=== PATIENT | female | born 1955 | race Caucasian/White ===

== ENCOUNTER 2016-10-05 18:18 | Emergency (ER) | payer OTHER ==
[~2016-10-05] VITALS: Ht 154.9 cm; Wt 40.1 kg
[~2016-10-05 18:18] MED LIST: ACET-1256 PO
[2016-10-05 18:23] VITALS: TEMP 36.7; Ht 154.9 cm; Wt 40.1 kg
[2016-10-05] MEDS ORDERED: MULTI-VITAMIN INFUSION INJ 10 ML, THIAMINE HCL INJ 100 MG, FoLIC ACID INJ 1 MG in SODIU... IV ONE (19:00)
[2016-10-05 19:09] LABS: URINE APPEARANCE CLEAR (CLEAR); URINE BILIRUBIN NEG (NEG); URINE COLOR YELLOW; URINE NITRITE NEG (NEG); URINE SPECIFIC GRAVITY 1.012 (1.000-1.030); UROBILINOGEN NEG (NEG); ZZUR CULT IF INDIC CLEAN CATCH NO
[2016-10-05 19:11] LABS: MANUAL MICROSCOPIC REQUIRED? NO; REVIEW REQ? NO
[2016-10-05 19:13] LABS: BASO % 0.1 %; BASO ABS # 0.01 K/uL (0-0.2); COMPLETE YES; EOS % 0.6 %; HEMATOCRIT 45.4 % (37-47); LYMPH % 47.1 %; LYMPH ABS # 3.15 K/uL (1.2-3.4); MEAN CORPUSCULAR HEMOGLOBIN 33.6 pg (25-34); MEAN PLATELET VOLUME 8.4 fL (7.4-10.4); MONO % 7.3 %; NEUT % 44.9 %; PLATELET COUNT 274 K/uL (130-400); RED BLOOD COUNT 4.73 M/uL (4.2-5.4); WHITE BLOOD COUNT 6.69 K/uL (4.8-10.8)
--- NOTE | 2016-10-05 19:24 | EMERGENCY ROOM VISIT NOTE ---
History Report prepared by Ibeth: Rayna Healy Under the Supervision of: Dr. Norma Almaguer M.D. First contact with patient: 18:54 Chief Complaint: ALCOHOL OVERDOSE Stated Complaint: ETOH Nursing Triage Summary: brought to ed by ambulance, phoned them "because I wanted to get help with my drinking" History of Present Illness The patient is a 61 year old female who presents to the Emergency Room with complaints of persistent, worsening depression over the past several weeks. The patient reports that over the last few years she has lost her mother and her sister. She states that it has caused her to become depressed. The patient states that over the past month she has been drinking heavily again. She reports that she previously drank heavy in the past. The patient states that she drinks approximately 7-8 beers per day and states that she drank 8 today. She denies any liquor or wine use. The patient states that she has been depressed, but denies any suicidal or homicidal ideation. She states that her children do not speak to her and states that she has a six year old granddaughter that she has never met. The patient states that she lives at home with her boyfriend and states that she feels safe. She states that she is nervous to go on a cruise with her boyfriend, because she is afraid of heights. The patient states that she was encouraged by her boyfriend to come to the emergency department today for help because he is worried about her. Source of History: patient Onset: past several weeks Position: other (global) Quality: other (depression) Timing: worsening, other (persistent) Note: Associated Symptoms: alcohol use Review of Systems See HPI for pertinent positives & negatives. A total of 10 systems reviewed and were otherwise negative. Past Medical & Surgical Medical Problems: (1) Chronic alcohol abuse (2) Colon cancer (3) Diabetes mellitus (4) Heart disease (5) HTN (hypertension) (6) Pancreatitis, alcoholic, acute Surgical Problems: (1) S/P partial colectomy Family History Diabetes mellitus FH: HTN (hypertension) FH: cancer FH: gallbladder disease FH: heart disease FH: lung disease Kidney disease or stones Social History Smoking Status: Never Smoker Alcohol Use: heavy Drug Use: none Marital Status: in relationship Housing Status: lives with significant other Occupation Status: unemployed Current/Historical Medications Scheduled Acetaminophen (Tylenol), 1,000 MG PO DIRECTED Allergies Coded Allergies: No Known Allergies (Verified , 02/10/16) Physical Exam Vital Signs Date Time Temp Pulse Resp B/P (MAP) Pulse Ox O2 Delivery O2 Flow Rate FiO2 10/05/16 23:44 100 18 133/77 92 10/05/16 23:00 107 18 121/64 94 Room Air 10/05/16 21:25 94 10/05/16 21:00 92 16 112/62 95 Room Air 10/05/16 19:32 92 Room Air 10/05/16 18:23 36.7 78 18 146/77 98 Room Air Physical Exam Vital signs reviewed. General: Intoxicated, otherwise well-appearing female, in no significant distress. Appearing tearful and anxious HEENT: No scleral icterus, PERRLA, neck supple. Atraumatic. Cardiovascular: Regular rate and rhythm, no extra sounds. Pulmonary: Clear to auscultation bilaterally, normal work of breathing. Abdomen: Soft, nontender, nondistended, positive bowel sounds. Musculoskeletal: Atraumatic, no peripheral edema. Neurologic: Patient awake alert and oriented x 3, full strength in all 4 extremities. Cranial nerves 2 through 12 grossly intact. Skin: Warm, dry, no rash Psych: Denies suicidal or homicidal ideation Medical Decision & Procedures Laboratory Results 10/05/16 19:01 Red Blood Count 4.73, Mean Corpuscular Volume 96.0, Mean Corpuscular Hemoglobin 33.6, Mean Corpuscular Hemoglobin Concent 35.0, Mean Platelet Volume 8.4, Neutrophils (%) (Auto) 44.9, Lymphocytes (%) (Auto) 47.1, Monocytes (%) (Auto) 7.3, Eosinophils (%) (Auto) 0.6, Basophils (%) (Auto) 0.1, Neutrophils # (Auto) 3.00, Lymphocytes # (Auto) 3.15, Monocytes # (Auto) 0.49, Eosinophils # (Auto) 0.04, Basophils # (Auto) 0.01 10/05/16 19:01 Test 10/05/16 18:40 10/05/16 19:01 Urine Color YELLOW Urine Appearance CLEAR (CLEAR) Urine pH 5.0 (4.5-7.5) Urine Specific [place] 1.012 (1.000-1.030) Urine Protein NEG (NEG) Urine Glucose (UA) NEG (NEG) Urine Ketones NEG (NEG) Urine Occult Blood NEG (NEG) Urine Nitrite NEG (NEG) Urine Bilirubin NEG (NEG) Urine Urobilinogen NEG (NEG) Urine Leukocyte Esterase NEG (NEG) Urine Opiates Screen NEG (NEG) Urine Methadone, Qualitative NEG (NEG) Urine Barbiturates NEG (NEG) Urine Phencyclidine (PCP) Level NEG (NEG) Ur Amphetamine/Methamphetamine NEG (NEG) MDMA (Ecstasy) Screen NEG (NEG) Urine Benzodiazepines Screen NEG (NEG) Urine Cocaine Metabolite NEG (NEG) Urine Marijuana (THC) NEG (NEG) White Blood Count 6.69 K/uL (4.8-10.8) Red Blood Count 4.73 M/uL (4.2-5.4) Hemoglobin 15.9 g/dL (12.0-16.0) Hematocrit 45.4 % (37-47) Mean Corpuscular Volume 96.0 fL (80-100) Mean Corpuscular Hemoglobin 33.6 pg (25-34) Mean Corpuscular Hemoglobin Concent 35.0 g/dl (32-36) Platelet Count 274 K/uL (130-400) Mean Platelet Volume 8.4 fL (7.4-10.4) Neutrophils (%) (Auto) 44.9 % Lymphocytes (%) (Auto) 47.1 % Monocytes (%) (Auto) 7.3 % Eosinophils (%) (Auto) 0.6 % Basophils (%) (Auto) 0.1 % Neutrophils # (Auto) 3.00 K/uL (1.4-6.5) Lymphocytes # (Auto) 3.15 K/uL (1.2-3.4) Monocytes # (Auto) 0.49 K/uL (0.11-0.59) Eosinophils # (Auto) 0.04 K/uL (0-0.5) Basophils # (Auto) 0.01 K/uL (0-0.2) RDW Standard Deviation 55.3 fL (36.4-46.3) RDW Coefficient of Variation 15.8 % (11.5-14.5) Immature Granulocyte % (Auto) 0.0 % Immature Granulocyte # (Auto) 0.00 K/uL (0.00-0.02) Prothrombin Time 9.9 SECONDS (9.0-12.0) Prothromb Time International Ratio 0.9 (0.9-1.1) Activated Partial Thromboplast Time 33.5 SECONDS (21.0-31.0) Partial Thromboplastin Ratio 1.3 Anion Gap 8.0 mmol/L (3-11) Est Creatinine Clear Calc Drug Dose 64.5 ml/min Estimated GFR () 115.3 Estimated GFR (Non- 99.5 BUN/Creatinine Ratio 13.0 (10-20) Calcium Level 8.6 mg/dl (8.5-10.1) Magnesium Level 2.3 mg/dl (1.8-2.4) Total Bilirubin 0.2 mg/dl (0.2-1) Direct Bilirubin < 0.1 mg/dl (0-0.2) Aspartate Amino Transf (AST/SGOT) 49 U/L (15-37) Alanine Aminotransferase (ALT/SGPT) 47 U/L (12-78) Alkaline Phosphatase 99 U/L (45-117) Total Protein 8.6 gm/dl (6.4-8.2) Albumin 3.9 gm/dl (3.4-5.0) Lipase 365 U/L (73-393) Thyroid Stimulating Hormone (TSH) 3.490 uIu/ml (0.300-4.500) Salicylates Level < 1.7 mg/dl (2.8-20) Acetaminophen Level < 2 ug/ml (10-30) Ethyl Alcohol mg/dL 360.0 mg/dl (0-3) Laboratory results per my review. Medications Administered Medications (Trade) Dose Ordered Sig/Herson Route Start Time Stop Time Status Last Admin Dose Admin Multivitamins 10 ml/Thiamine HCl 100 mg/Folic Acid 1 mg/Sodium Chloride 1,011.2 ml @ 300 mls/ hr Q3H23M ONCE IV 10/05/16 19:00 10/05/16 22:22 DC 10/05/16 19:32 300 MLS/HR Ondansetron HCl (ZOFRAN ODT 4MG Home Pack) 1 homepack UD ONCE PO 10/05/16 23:45 10/05/16 23:46 DC 10/05/16 23:42 1 HOMEPACK ECG Indication: toxicologic Rate (beats per minute): 115 Rhythm: sinus tachycardia Findings: no acute ischemic change, no ectopy, other (previous inferior infarct ) ED Course 1900: Ordered Multivitamins 10 ml/Thiamine HCl 100 mg/Folic Acid 1 mg/Sodium Chloride 1011.2 ml @ 300 mls/hr IV. 1907: Past medical records reviewed. The patient was evaluated in room A7. A complete history and physical examination was performed. 2334: I reevaluated the patient and she is requesting to be discharged. I discussed all the exam findings with her and I discussed the treatment plan. She verbalized complete understanding and agreement. She is ready to go home. 2345: Ordered Ondansetron HCl 1 homepack PO. Medical Decision Differential diagnosis: Etiologies such as mood disorder, infection, hypoglycemia, electrolyte abnormalities, cardiac sources, intracerebral event, toxicologic, neurologic, as well as others were entertained. Medication Reconciliation: I attest that I have personally reviewed the patient' s current medication list. Blood Pressure Screening: Patient was found to have an elevated blood pressure and was referred to their primary doctor for recheck and further treatment. This patient was evaluated and appeared to be in no significant distress. She is significantly intoxicated on exam, however is awake alert and follows commands. She states she drinks about 8 beers a day. Her blood alcohol in the ER is 360. Patient was hydrated with a banana bag. She was observed for several hours in the emergency Department but requested to be discharged. The patient never had made statements regarding suicidal ideation. Her boyfriend arrived in the ER and was willing to take her home. He states his primary concern is that she has not been eating and has been drinking more. The patient is very tearful when her family is discussed, apparently she has a strained relationship with her children. She denies any for inpatient treatment , again denies that thoughts of wanting to hurt herself. She was discharged and asked to follow through with outpatient drug and alcohol counseling. She will return to the ER for worsening of symptoms or any medical concerns. Impression Primary Impression: Alcohol intoxication Scribe Attestation The scribe's documentation has been prepared under my direction and personally reviewed by me in its entirety. I confirm that the note above accurately reflects all work, treatment, procedures, and medical decision making performed by me. Departure Information Dispostion Home / Self-Care Referrals Lamar Jacobsen C.R.N.P (PCP) Forms HOME CARE DOCUMENTATION FORM, IMPORTANT VISIT INFORMATION Patient Instructions My [facility] Additional Instructions Diagnosis: Alcohol intoxication, alcohol abuse Drink plenty of clear fluids. Avoid excessive alcohol. Please follow-up with outpatient counseling resources provided to the emergency department. Follow-up with your physician this week for reevaluation Return to the ER for worsening of symptoms or any medical concerns.
[2016-10-05 19:25] LABS: INR 0.9 (0.9-1.1); PARTIAL THROMBOPLASTIN RATIO 1.3; PROTHROMBIN TIME (PATIENT) 9.9 SECONDS (9.0-12.0)
[2016-10-05 19:32] VITALS: O2SAT 92
[2016-10-05 19:33] LABS: ALT/SGPT 47 U/L (12-78); AST/SGOT 49 U/L (15-37); BLOOD UREA NITROGEN 8 mg/dl (7-18); CALCIUM 8.6 mg/dl (8.5-10.1); CARBON DIOXIDE 31 mmol/L (21-32); CHLORIDE 105 mmol/L (98-107); CREATININE 0.58 mg/dl (0.60-1.20); GLUCOSE 81 mg/dl (70-99); MAGNESIUM 2.3 mg/dl (1.8-2.4); POTASSIUM 3.6 mmol/L (3.5-5.1); SODIUM 144 mmol/L (136-145)
[2016-10-05 19:35] LABS: ACETAMINOPHEN < 2 ug/ml (10-30)
[2016-10-05 19:50] LABS: BENZODIAZEPINE, URINE NEG (NEG); COCAINE,URINE NEG (NEG); PHENCYCLIDINE, URINE NEG (NEG)
[2016-10-05 19:53] LABS: ALKALINE PHOSPHATASE 99 U/L (45-117)
[2016-10-05] MEDS ORDERED: ONDANSETRON HOME PACK 4MG OD TAB ONE (23:38)
[2016-10-05 23:44] VITALS: BP 133/77; PULSE 100; O2SAT 92
[2016-10-05] MEDS ORDERED: ONDANSETRON HOME PACK 4MG OD TAB PO ONE (23:45)
== END 2016-10-05 23:44 | disposition home or self-care (01) ==
LOC: EDBD 18:18 → C.EDA 18:19
DX: F10.129 Alcohol abuse with intoxication, unspecified (principal); E11.9 Type 2 diabetes mellitus without complications; I10 Essential (primary) hypertension; C18.9 Malignant neoplasm of colon, unspecified; I51.9 Heart disease, unspecified; K85.20 Alcohol induced acute pancreatitis without necrosis or infection; Z82.49 Family history of ischemic heart disease and other diseases of the circulatory system; Z83.3 Family history of diabetes mellitus; F10.10 Alcohol abuse, uncomplicated

== ENCOUNTER 2017-06-07 17:51 | Inpatient (IN) | payer OTHER ==
[~2017-06-07] VITALS: Ht 154.9 cm; Wt 54.1 kg
[2017-06-07] MEDS ORDERED: SODIUM CHLORIDE 0.9% 1000ML 1,000 ML IV SCH (18:23)
--- NOTE | 2017-06-07 19:01 | DIAGNOSTIC IMAGING REPORT ---
CHEST ONE VIEW PORTABLE CLINICAL HISTORY: hypoxia dyspnea COMPARISON STUDY: 02/10/2016 FINDINGS: The bones soft tissues and hemidiaphragms are normal. The cardiomediastinal silhouette is normal. The lungs are clear. The pulmonary vasculature is normal. IMPRESSION: Negative chest. The above report was generated using voice recognition software. It may contain grammatical, syntax or spelling errors. Electronically signed by: Jose Goldstein M.D. 06/07/2017 6:59 PM Dictated Date/Time: 06/07/2017 6:58 PM
[2017-06-07 19:19] LABS: BASO % 0.1 %; BASO ABS # 0.01 K/uL (0-0.2); EOS % 0.3 %; EOS ABS # 0.04 K/uL (0-0.5); HEMATOCRIT 39.7 % (37-47); HEMOGLOBIN 14.3 g/dL (12.0-16.0); IG# 0.04 K/uL (0.00-0.02); LYMPH % 15.1 %; LYMPH ABS # 1.78 K/uL (1.2-3.4); MEAN CELL VOLUME 89.8 fL (80-100); MEAN CORPUSCULAR HEMOGLOBIN 32.4 pg (25-34); MEAN PLATELET VOLUME 8.9 fL (7.4-10.4); MONO % 8.8 %; MONO ABS # 1.04 K/uL (0.11-0.59); NEUT % 75.4 %; NEUT ABS # 8.85 K/uL (1.4-6.5); PLATELET COUNT 298 K/uL (130-400); RED CELL DISTRIBUTION WIDTH CV 12.9 % (11.5-14.5); RED CELL DISTRIBUTION WIDTH SD 42.1 fL (36.4-46.3); WHITE BLOOD COUNT 11.76 K/uL (4.8-10.8)
[2017-06-07 19:30] LABS: PTT PATIENT 24.7 SECONDS (21.0-31.0)
--- NOTE | 2017-06-07 19:39 | EMERGENCY ROOM VISIT NOTE ---
History First contact with patient: 18:17 Chief Complaint: DIZZY Stated Complaint: DIZZY/WEAKNESS Nursing Triage Summary: PAtient was passenger in car and began to have dizziness, lightheadedness, and vomited times one. Symptoms were sudden onset. History of Present Illness The patient is a 62 year old female who presents to the Emergency Room with complaints of "dizziness, weakness, vomiting 1". Patient states she was the passenger of a car just prior to arrival when she developed sudden onset of dizziness/weakness and vomiting 1. She states that she also has been feeling queasy throughout the day. She notes a history of hypokalemia about 7 or 8 years ago when she was diagnosed with colon cancer. She also notes a drinking history and last consumed alcohol yesterday. She denies any chest pain, shortness of breath, fevers or chills. There is no pain at the current time. Review of Systems A complete 10-point Review of Systems was discussed with the patient, with pertinent positives and negatives listed in the History of Present Illness. All remaining Review of Systems questions can be considered negative unless otherwise specified. Past Medical/Surgical History Medical Problems: (1) Chronic alcohol abuse (2) Colon cancer (3) Diabetes mellitus (4) Heart disease (5) HTN (hypertension) (6) Pancreatitis, alcoholic, acute Surgical Problems: (1) S/P partial colectomy Family History Diabetes mellitus FH: HTN (hypertension) FH: cancer FH: gallbladder disease FH: heart disease FH: lung disease Kidney disease or stones Social History Smoking Status: Never Smoker Alcohol Use: heavy Drug Use: none Marital Status: in relationship Housing Status: lives with significant other Occupation Status: unemployed Current/Historical Medications Scheduled PRN Acetaminophen (Tylenol), 1,000 MG PO DIRECTED PRN for Pain or Fever Physical Exam Vital Signs Date Time Temp Pulse Resp B/P (MAP) Pulse Ox O2 Delivery O2 Flow Rate FiO2 06/07/17 22:25 105/56 06/07/17 21:22 100 Nasal Cannula 2.0 06/07/17 21:21 82 Room Air 06/07/17 21:02 76 22 92/48 99 Room Air 06/07/17 19:56 78 15 98/59 97 Room Air 06/07/17 19:30 73 06/07/17 18:31 100 Room Air 06/07/17 18:13 73 06/07/17 18:04 87 Room Air 06/07/17 18:01 36.4 70 18 109/65 99 Room Air Physical Exam VITAL SIGNS - Vital signs and nursing notes were reviewed. Stable. GENERAL - 62-year-old female appearing her stated age who is in no acute distress. Communicates well with provider and answers questions appropriately. SKIN - Without rashes. HEAD - NC/AT. EYES - Sclera anicteric. EARS - No deformities of external structures noted on gross examination bilaterally. NOSE - Midline and without cyanosis. No epistaxis or purulent drainage noted. MOUTH/OROPHARYNX - Without perioral cyanosis. LUNGS - Chest wall symmetric without accessory muscle use, intercostals retractions, or central cyanosis. Normal vesicular breath sounds CTA B/L. No wheezes, rales, or rhonchi appreciated. CARDIAC - RRR with S1/S2. No murmur, rubs, or gallops appreciated. NEUROLOGIC - Cranial nerves II through XII grossly intact. Sensory intact to light touch throughout. PSYCH - A&O, and cooperates fully with examiner. Pt is very pleasant and interacts well with examiner. Medical Decision & Procedures ER Provider Diagnostic Interpretation: CHEST ONE VIEW PORTABLE CLINICAL HISTORY: hypoxia dyspnea COMPARISON STUDY: 02/10/2016 FINDINGS: The bones soft tissues and hemidiaphragms are normal. The cardiomediastinal silhouette is normal. The lungs are clear. The pulmonary vasculature is normal. IMPRESSION: Negative chest. The above report was generated using voice recognition software. It may contain grammatical, syntax or spelling errors. Electronically signed by: Jose Goldstein M.D. 06/07/2017 6:59 PM Dictated Date/Time: 06/07/2017 6:[address] NON[address]AST CT DOSE: 537.48 mGy.cm HISTORY: Weakness. Dizziness. Stroke TECHNIQUE: Multiaxial CT images of the head were performed without the use of intravenous contrast. Automated exposure control was utilized for this study. A dose lowering technique was utilized adhering to the principles of ALARA. Comparison: Head CT 09/22/2015. Findings: The paranasal sinuses and mastoid air cells are clear. The calvarium and skull base are intact. The ventricles and sulci are within normal limits. There is no mass, hematoma, midline shift, or acute infarct. Impression: No acute intracranial abnormality. Electronically signed by: Helio Sampson M.D. 06/07/2017 8:13 PM Dictated Date/Time: 06/07/2017 8:08 PM Laboratory Results 06/07/17 19:05 Red Blood Count 4.42, Mean Corpuscular Volume 89.8, Mean Corpuscular Hemoglobin 32.4, Mean Corpuscular Hemoglobin Concent 36.0, Mean Platelet Volume 8.9, Neutrophils (%) (Auto) 75.4, Lymphocytes (%) (Auto) 15.1, Monocytes (%) (Auto) 8.8, Eosinophils (%) (Auto) 0.3, Basophils (%) (Auto) 0.1, Neutrophils # (Auto) 8.85, Lymphocytes # (Auto) 1.78, Monocytes # (Auto) 1.04, Eosinophils # (Auto) 0.04, Basophils # (Auto) 0.01 06/07/17 19:05 Test 06/07/17 19:05 06/07/17 20:09 White Blood Count 11.76 K/uL (4.8-10.8) Red Blood Count 4.42 M/uL (4.2-5.4) Hemoglobin 14.3 g/dL (12.0-16.0) Hematocrit 39.7 % (37-47) Mean Corpuscular Volume 89.8 fL (80-100) Mean Corpuscular Hemoglobin 32.4 pg (25-34) Mean Corpuscular Hemoglobin Concent 36.0 g/dl (32-36) Platelet Count 298 K/uL (130-400) Mean Platelet Volume 8.9 fL (7.4-10.4) Neutrophils (%) (Auto) 75.4 % Lymphocytes (%) (Auto) 15.1 % Monocytes (%) (Auto) 8.8 % Eosinophils (%) (Auto) 0.3 % Basophils (%) (Auto) 0.1 % Neutrophils # (Auto) 8.85 K/uL (1.4-6.5) Lymphocytes # (Auto) 1.78 K/uL (1.2-3.4) Monocytes # (Auto) 1.04 K/uL (0.11-0.59) Eosinophils # (Auto) 0.04 K/uL (0-0.5) Basophils # (Auto) 0.01 K/uL (0-0.2) RDW Standard Deviation 42.1 fL (36.4-46.3) RDW Coefficient of Variation 12.9 % (11.5-14.5) Immature Granulocyte % (Auto) 0.3 % Immature Granulocyte # (Auto) 0.04 K/uL (0.00-0.02) Prothrombin Time 10.7 SECONDS (9.0-12.0) Prothromb Time International Ratio 1.0 (0.9-1.1) Activated Partial Thromboplast Time 24.7 SECONDS (21.0-31.0) Partial Thromboplastin Ratio 1.0 Anion Gap 11.0 mmol/L (3-11) Est Creatinine Clear Calc Drug Dose 67.7 ml/min Estimated GFR () 110.3 Estimated GFR (Non- 95.2 BUN/Creatinine Ratio 10.9 (10-20) Calcium Level 8.6 mg/dl (8.5-10.1) Phosphorus Level 1.6 mg/dl (2.5-4.9) Magnesium Level 1.6 mg/dl (1.8-2.4) Total Bilirubin 0.7 mg/dl (0.2-1) Aspartate Amino Transf (AST/SGOT) 17 U/L (15-37) Alanine Aminotransferase (ALT/SGPT) 12 U/L (12-78) Alkaline Phosphatase 74 U/L (45-117) Total Creatine Kinase 62 U/L (26-192) Creatine Kinase MB < 0.5 ng/ml (0.5-3.6) Creatine Kinase MB Ratio (0-3.0) Troponin I < 0.015 ng/ml (0-0.045) Total Protein 7.1 gm/dl (6.4-8.2) Albumin 3.2 gm/dl (3.4-5.0) Globulin 3.9 gm/dl (2.5-4.0) Albumin/Globulin Ratio 0.8 (0.9-2) Lipase 163 U/L (73-393) Thyroid Stimulating Hormone (TSH) 4.020 uIu/ml (0.300-4.500) Ethyl Alcohol mg/dL < 3.0 mg/dl (0-3) Influenza Type A Antigen Neg for Influ A (NEG) Influenza Type B Antigen Neg for Influ B (NEG) Medications Administered Medications (Trade) Dose Ordered Sig/Herson Route Start Time Stop Time Status Last Admin Dose Admin Sodium Chloride 1,000 ml @ 50 mls/hr Q20H IV 06/07/17 18:23 07/07/17 18:22 06/07/17 18:23 50 MLS/HR Magnesium Sulfate (Magnesium Sulfate) 2 gm NOW STAT IV 06/07/17 20:08 06/07/17 20:10 DC 06/07/17 20:56 2 GM Potassium Chloride (Klor-Con M10) 40 meq NOW STAT PO 06/07/17 20:11 06/07/17 20:13 DC 06/07/17 20:56 40 MEQ Potassium Chloride 10 meq/ Prmx 100 ml @ 100 mls/hr 2030 IV 06/07/17 20:30 06/07/17 21:29 DC 06/07/17 20:49 100 MLS/HR Medical Decision Patient was seen and evaluated as above. She presents to us today with the dizziness. She is nontoxic on exam, however when I entered into the room and looked at the monitor it does reveal that she is in bigeminy. Bedside EKG was performed and compared to previous, and bigeminy is not noted. This is per my interpretation. No evidence of MS. This was discussed with the attending physician. CT was obtained of the head and chest x-ray are obtained. No acute process. I was called and told that her potassium was found to be 1.5 is a critical value. I then started 10 mEq of potassium chloride IV, and discussed the case with the hospitalist. I spoke with Dr. Yanez. He recommended adding 40 mEq of potassium by mouth, and 2 g of magnesium IV stat. She was given this. She appears stable for inpatient management. Please refer to further documentation regarding her stay. Slight leukocytosis of 11.76. Coags normal. Metabolic panel reveals potassium low at 1.5, carbon dioxide high at 42. Kidney function is okay. Phosphorus low at 1.6. Magnesium low 1.6. In the evaluation and treatment of this patient, the following differential diagnoses were considered: Concussion, Contrecoup Injury, Brain Tumor, Depression, Encephalitis, Hypothyroidism, Meningitis, CVA, TIA, Migraine, Cluster Headache, Intracranial Abnormality, Intracranial Hemorrhage, Subdural Hematoma, Subarachnoid Hemorrhage, Hydrocephalus, hypokalemia, among others. Impression Primary Impression: Hypokalemia Additional Impressions: Hypomagnesemia Dizziness Departure Information Dispostion Admitted as an inpatient Condition FAIR Referrals Lamar Jacobsen C.R.N.P (PCP) Patient Instructions My [facility] Problem Qualifiers
[2017-06-07 19:57] LABS: ALBUMIN 3.2 gm/dl (3.4-5.0); ALKALINE PHOSPHATASE 74 U/L (45-117); ALT/SGPT 12 U/L (12-78); AST/SGOT 17 U/L (15-37); BLOOD UREA NITROGEN 7 mg/dl (7-18); CALCIUM 8.6 mg/dl (8.5-10.1); CARBON DIOXIDE 42 mmol/L (21-32); CKMB < 0.5 ng/ml (0.5-3.6); CREATININE 0.65 mg/dl (0.60-1.20); GLUCOSE 126 mg/dl (70-99); LIPASE 163 U/L (73-393); POTASSIUM 1.5 mmol/L (3.5-5.1); SODIUM 127 mmol/L (136-145); TOTAL PROTEIN 7.1 gm/dl (6.4-8.2)
[2017-06-07] MEDS ORDERED: POTASSIUM CHLR 20 MEQ / WTR 10 MEQ in PREMIXED WATER 100 ML IV STA (19:59)
[2017-06-07] MEDS ORDERED: MAGNESIUM SULFATE 1GM / D5W 1 GM BAG IV STA (20:08)
[2017-06-07] MEDS ORDERED: POTASSIUM CHLORIDE 10 MEQ TABCR PO STA (20:11)
--- NOTE | 2017-06-07 20:15 | DIAGNOSTIC IMAGING REPORT ---
HEAD CT NONCONTRAST CT DOSE: 537.48 mGy.cm HISTORY: Weakness. Dizziness. Stroke TECHNIQUE: Multiaxial CT images of the head were performed without the use of intravenous contrast. Automated exposure control was utilized for this study. A dose lowering technique was utilized adhering to the principles of ALARA. Comparison: Head CT 09/22/2015. Findings: The paranasal sinuses and mastoid air cells are clear. The calvarium and skull base are intact. The ventricles and sulci are within normal limits. There is no mass, hematoma, midline shift, or acute infarct. Impression: No acute intracranial abnormality. Electronically signed by: Helio Sampson M.D. 06/07/2017 8:13 PM Dictated Date/Time: 06/07/2017 8:08 PM
[2017-06-07] MEDS ORDERED: POTASSIUM CHLR 10MEQ / WTR IV SCH (20:30)
[2017-06-07] MEDS ORDERED: POLYETHYLENE (MIRALAX) 17 GM PACK PO PRN (20:45)
[2017-06-07] MEDS ORDERED: MAGNESIUM HYDROXIDE SUSP 30 ML UDC PO PRN (20:45)
[2017-06-07] MEDS ORDERED: ACETAMINOPHEN 325 MG TAB PO PRN (20:45)
[2017-06-07] MEDS ORDERED: ONDANSETRON INJ 2 MG/ML 2 ML VIAL IV PRN (20:45)
[2017-06-07] MEDS ORDERED: MoRPHine SULFATE 2 MG/ML CARP IV PRN (20:45)
[2017-06-07] MEDS ORDERED: ALUMINUM/MAGNESIUM/SIMETH (MAALOX MAX) 30 ML UDC PO PRN (20:45)
[2017-06-07] MEDS ORDERED: MAGNESIUM OXIDE 400 MG TAB PO SCH (21:00)
[2017-06-07] MEDS ORDERED: LORAZEPAM 2 MG/ML 1 ML VIAL IV PRN ×2 (21:00)
[2017-06-07 21:07] LABS: INFLUENZA B ANTIGEN Neg for Influ B (NEG)
--- NOTE | 2017-06-07 22:11 | History and Physical ---
History & Physical Date & Time of Service: Jun 07, 2017 at 21:47 Chief Complaint: Dizzy/Weakness Primary Care Physician: Lamar Jacobsen C.R.N.P History of Present Illness Source: patient 62 y/o F Hx Colon CA in remission x 7 years, ETOH abuse. The pt was in the passenger seat of a car when she developed acute dizziness, a feeling of panic and then nausea and vomiting prompting her to visit the ER. She denies CP, denies diarrhea, denies a recent change in bowel habits or PO intake. She states she last had an alcoholic beverage one day prior and states that she does not drink in excess. Initial labs in the ER were notable for critical potassium level (1.5), hypomagnesemia and hyponatremia. An initial EKG is consistent with bradycardia, bigeminy and a prolonged QT. Past Medical/Surgical History 1) ETOH abuse 2) Hypokalemia 3) Colon CA - surgical resection followed by treatment with Xeloda - 2009 Family History Diabetes mellitus FH: HTN (hypertension) FH: cancer FH: gallbladder disease FH: heart disease FH: lung disease Kidney disease or stones Social History Smoking Status: Never Smoker Drug Use: none Marital Status: in relationship Housing status: other Occupational Status: unemployed Immunizations History of Influenza Vaccine: Unknown History of Tetanus Vaccine?: Unknown History of Pneumococcal: Unknown History of Hepatitis B Vaccine: Unknown Multi-Drug Resistant Organisms History of MDRO: No Allergies Coded Allergies: No Known Allergies (Verified , 06/07/17) Home Medications Scheduled PRN Acetaminophen (Tylenol), 1,000 MG PO DIRECTED PRN for Pain or Fever Review of Systems Constitutional: + problem reported (feeling of panic), No fever, No chills, No sweats Eyes: No worsening of vision ENT: No hearing loss, No unusual epistaxis, No nasal symptoms Respiratory: No cough, No sputum, No wheezing Cardiovascular: No chest pain, No orthopnea, No PND Abdomen: + nausea, + vomiting, No pain Musculoskeletal: No joint pain Genitourinary - Female: No dysuria, No hematuria Neurologic: + vertigo, No memory loss Psychiatric: No depression symptoms Endocrine: No fatigue Hematologic / Lymphatic: No abnormal bleeding/bruising Integumentary: No rash Allergic / Immunologic: No environmental allergies Physical Exam Vital Signs Date Time Temp Pulse Resp B/P (MAP) Pulse Ox O2 Delivery O2 Flow Rate FiO2 2/15/18 21:22 100 Nasal Cannula 2.0 06/07/17 21:21 82 Room Air 06/07/17 21:02 76 22 92/48 99 Room Air 06/07/17 19:56 78 15 98/59 97 Room Air 06/07/17 19:30 73 06/07/17 18:31 100 Room Air 06/07/17 18:13 73 06/07/17 18:04 87 Room Air 06/07/17 18:01 36.4 70 18 109/65 99 Room Air General Appearance: WD/WN, no apparent distress Head: normocephalic Eyes: normal inspection ENT: normal ENT inspection Neck: supple, no JVD Respiratory/Chest: chest non-tender, lungs clear, normal breath sounds Cardiovascular: regular rate, rhythm, no edema, no gallop Abdomen/GI: normal bowel sounds, non tender, soft Genitourinary - Female: external genitalia normal, normal pelvic exam, normal cervix Back: normal inspection, no CVA tenderness, no muscle spasm, normal range of motion Extremities/Musculoskelatal: normal inspection, no calf tenderness, normal capillary refill 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, no motor/sensory deficits, alert, oriented x 3 Skin: + pertinent finding (Facial erythema is present) Diagnostics Laboratory Results Results Past 24 Hours Test 06/07/17 19:05 06/07/17 20:09 Range/Units White Blood Count 11.76 4.8-10.8 K/uL Red Blood Count 4.42 4.2-5.4 M/uL Hemoglobin 14.3 12.0-16.0 g/dL Hematocrit 39.7 37-47 % Mean Corpuscular Volume 89.8 80-100 fL Mean Corpuscular Hemoglobin 32.4 25-34 pg Mean Corpuscular Hemoglobin Concent 36.0 32-36 g/dl Platelet Count 298 130-400 K/uL Mean Platelet Volume 8.9 7.4-10.4 fL Neutrophils (%) (Auto) 75.4 % Lymphocytes (%) (Auto) 15.1 % Monocytes (%) (Auto) 8.8 % Eosinophils (%) (Auto) 0.3 % Basophils (%) (Auto) 0.1 % Neutrophils # (Auto) 8.85 1.4-6.5 K/uL Lymphocytes # (Auto) 1.78 1.2-3.4 K/uL Monocytes # (Auto) 1.04 0.11-0.59 K/uL Eosinophils # (Auto) 0.04 0-0.5 K/uL Basophils # (Auto) 0.01 0-0.2 K/uL RDW Standard Deviation 42.1 36.4-46.3 fL RDW Coefficient of Variation 12.9 11.5-14.5 % Immature Granulocyte % (Auto) 0.3 % Immature Granulocyte # (Auto) 0.04 0.00-0.02 K/uL Prothrombin Time 10.7 9.0-12.0 SECONDS Prothromb Time International Ratio 1.0 0.9-1.1 Activated Partial Thromboplast Time 24.7 21.0-31.0 SECONDS Partial Thromboplastin Ratio 1.0 Sodium Level 127 136-145 mmol/L Potassium Level 1.5 3.5-5.1 mmol/L Chloride Level 74 98-107 mmol/L Carbon Dioxide Level 42 21-32 mmol/L Anion Gap 11.0 3-11 mmol/L Blood Urea Nitrogen 7 7-18 mg/dl Creatinine 0.65 0.60-1.20 mg/dl Est Creatinine Clear Calc Drug Dose 67.7 ml/min Estimated GFR () 110.3 Estimated GFR (Non- 95.2 BUN/Creatinine Ratio 10.9 10-20 Random Glucose 126 70-99 mg/dl Calcium Level 8.6 8.5-10.1 mg/dl Phosphorus Level 1.6 2.5-4.9 mg/dl Magnesium Level 1.6 1.8-2.4 mg/dl Total Bilirubin 0.7 0.2-1 mg/dl Aspartate Amino Transf (AST/SGOT) 17 15-37 U/L Alanine Aminotransferase (ALT/SGPT) 12 12-78 U/L Alkaline Phosphatase 74 45-117 U/L Total Creatine Kinase 62 26-192 U/L Creatine Kinase MB < 0.5 0.5-3.6 ng/ml Creatine Kinase MB Ratio 0-3.0 Troponin I < 0.015 0-0.045 ng/ml Total Protein 7.1 6.4-8.2 gm/dl Albumin 3.2 3.4-5.0 gm/dl Globulin 3.9 2.5-4.0 gm/dl Albumin/Globulin Ratio 0.8 0.9-2 Lipase 163 73-393 U/L Thyroid Stimulating Hormone (TSH) 4.020 0.300-4.500 uIu/ml Ethyl Alcohol mg/dL < 3.0 0-3 mg/dl Influenza Type A Antigen Neg for Influ A NEG Influenza Type B Antigen Neg for Influ B NEG EKG Sinus - bigeminy/PVCs, bradycardia, prolonged QT Impression Assessment and Plan 62 y/o F Hx Colon CA in remission x 7 years, ETOH abuse. The pt was in the passenger seat of a car when she developed acute dizziness, a feeling of panic and then nausea and vomiting prompting her to visit the ER. She denies CP, denies diarrhea, denies a recent change in bowel habits or PO intake. She states she last had an alcoholic beverage one day prior and states that she does not drink in excess. Initial labs in the ER were notable for critical potassium level (1.5), hypomagnesemia and hyponatremia. An initial EKG is consistent with bradycardia, bigeminy and a prolonged QT. 1) Dizziness, nausea, vomiting - likely precipitated by severe electrolyte abnormalities. We will monitor the pt on telemetry while her K , Mg and Na are normalized. Serial electrolytes and EKGs will be obtained. We would presume that the pt is not forthcoming regarding her diet and ETOH intake. This may then be due to long-term poor nutrition and alcohol abuse. She denies chronic diarrhea or chronic nausea and vomiting. She does state that prior to resection of her colon CA she was taking daily K. A workup for recurrence may then be reasonable going forward, although not necessarily as an inpatient. 2) ETOH abuse - denies - unclear if she is truthful reg intake - provisions have been supplied in the event of withdrawal - she will receive Thiamine, Folate, PRN Ativan. Full code - SCDs due to fall/seizure risk Total time for this admit including review of labs, meds, imaging, EKG, records - discussion with pt and ER attending - 37 min Level of Care Telemetry Resuscitation Status FULL RESUSCITATION VTE Prophylaxis VTE Risk Assessment Done? Y/N: Yes Risk Level: Moderate Given or contraindicated: SCD's
[2017-06-07] MEDS ORDERED: THIAMINE HCL 100 MG/ML 2 ML VIAL IM STA (22:13)
[2017-06-07 22:30] VITALS: BP 109/68; PULSE 70; TEMP 36.7; O2SAT 94; Ht 154.9 cm; Wt 54.1 kg
[2017-06-07] MEDS: D5NSS + 20MEQ KCL 1,000 ML IV SCH (23:45)
[2017-06-08] VITALS (8 sets, daily range): BP systolic 81–108; BP diastolic 43–70; PULSE 74–89; TEMP 36.2–36.9; O2SAT 96–100
[2017-06-08] MEDS: POTASSIUM CHLR 10 MEQ / WTR 10 MEQ in PREMIXED WATER 100 ML IV SCH ×8 (00:03→10:48)
[2017-06-08 00:32] LABS: CALCIUM 8.5 mg/dl (8.5-10.1); CREATININE 0.6 mg/dl (0.60-1.20); POTASSIUM 1.9 mmol/L (3.5-5.1)
[2017-06-08] MEDS ORDERED: LORAZEPAM INJ 0.5 MG in SYRINGE 0.75 ML IV ONE (01:30)
[2017-06-08] MEDS ORDERED: NURSING DECISION MEDICATION ORDER SCH (01:30)
[2017-06-08 05:57] LABS: CALCIUM 8.3 mg/dl (8.5-10.1); CREATININE 0.6 mg/dl (0.60-1.20)
[2017-06-08] MEDS ORDERED: NURSING VERBAL MED ORDER ONE (08:00)
[2017-06-08] MEDS ORDERED: THIAMINE HCL INJ 100 MG in SYRINGE 9 ML IV SCH (09:00)
[2017-06-08] MEDS ORDERED: FoLIC ACID INJ 1 MG in SYRINGE 9.8 ML IV SCH (09:00)
[2017-06-08] MEDS: D5NSS + 20MEQ KCL 1,000 ML IV SCH (09:39)
[2017-06-08 11:19] LABS: CALCIUM 8.1 mg/dl (8.5-10.1); CREATININE 0.53 mg/dl (0.60-1.20); POTASSIUM 3.5 mmol/L (3.5-5.1)
[2017-06-08 15:35] LABS: CALCIUM 8.1 mg/dl (8.5-10.1); CREATININE 0.61 mg/dl (0.60-1.20); POTASSIUM 3.3 mmol/L (3.5-5.1)
[2017-06-08] MEDS ORDERED: POT PHOSPHATE MONOBASIC W/ SOD TAB PO STA (16:16)
[2017-06-08] MEDS ORDERED: KPH250 PO (16:26)
[2017-06-08] MEDS ORDERED: POTA10CA28 PO (16:26)
[2017-06-08] MEDS ORDERED: FLV1 PO (16:26)
--- NOTE | 2017-06-08 16:27 | Discharge Instructions ---
Discharge Instructions Date of Service Jun 08, 2017. Admission Reason for Admission: Alcohol Dependence; Dizziness; Hypokalemia Discharge Discharge Diagnosis / Problem: Poor nutrition/ electrolyte abnormalities Discharge Goals Goal(s): Improve function, Increase independence Activity Recommendations Activity Limitations: resume your previous activity . Instructions / Follow-Up Instructions / Follow-Up Follow up with PCP in 1 week Current Hospital Diet Patient's current hospital diet: Regular Diet Discharge Diet Recommended Diet: Regular Diet Pending Studies Studies pending at discharge: no Medical Emergencies . Who to Call and When: Medical Emergencies: If at any time you feel your situation is an emergency, please call 911 immediately. . Non-Emergent Contact Non-Emergency issues call your: Primary Care Provider Call Non-Emergent contact if: you have any medication questions . . "Provider Documentation" section prepared by Vladimir Vann. . VTE Core Measure Inpt VTE Proph given/why not?: SCD's
[2017-06-08] MEDS ORDERED: NSS + 20MEQ KCL 1000ML 1,000 ML IV ONE (16:30)
== END 2017-06-08 17:30 | disposition left against medical advice (07) | DRG 641 ==
LOC: EDBD 17:51 → C.EDB 17:52 → C.MED 20:46 → ENRESERV 22:02
PROVIDERS: ADMIT Internal Medicine; ATTEND Internal Medicine
DX: E87.1 Hypo-osmolality and hyponatremia (principal); E87.6 Hypokalemia; E83.42 Hypomagnesemia; F10.10 Alcohol abuse, uncomplicated; Z53.21 Procedure and treatment not carried out due to patient leaving prior to being seen by health care provider; Z85.038 Personal history of other malignant neoplasm of large intestine; Z83.3 Family history of diabetes mellitus; Z82.49 Family history of ischemic heart disease and other diseases of the circulatory system; Z83.6 Family history of other diseases of the respiratory system; Z84.1 Family history of disorders of kidney and ureter; Z83.79 Family history of other diseases of the digestive system

== ENCOUNTER 2017-09-15 11:36 | Emergency (ER) | payer OTHER ==
[~2017-09-15] VITALS: Ht 154.9 cm; Wt 47.7 kg
[~2017-09-15 11:36] MED LIST changes: -ACET-1256 PO; +FLV1 PO; +KPH250 PO
[2017-09-15 11:43] VITALS: TEMP 36.6; Ht 154.9 cm; Wt 47.7 kg
[2017-09-15] MEDS ORDERED: POTA99TA PO (11:55)
--- NOTE | 2017-09-15 12:09 | EMERGENCY ROOM VISIT NOTE ---
History Report prepared by Ibeth: Dimple Stubbs Under the Supervision of: Dr. Mustapha Jones M.D. First contact with patient: 11:56 Chief Complaint: SYNCOPE Stated Complaint: SYNCOPE Nursing Triage Summary: pt arrived via ems from [facility] for syncope, pt currently being tx for hypokalemia, did not take supplement today and did not eat food until lunch. Pt became diaphoretic, flushed and vomited x 1. Pt then had syncope for "several seconds," no seizure activity noted. pt alert and oriented to place, time and event, stated "the restaurant was really hot, they had no air conditioning." History of Present Illness The patient is a 62 year old white female with a past medical history of alcohol abuse who presents to the ED with a cc of sudden syncope beginning shortly prior to arrival. She reports that she was eating soup outside when she passed out for a couple of seconds and slid out of her chair. She reports that EMS checked her sugar level and that it was good. Negative urinary symptoms, chest pain, shortness of breath, swelling in legs, or other complaints. Per family, the patient has had syncopal episodes before. Source of History: patient, family Onset: shortly prior to arrival Position: other (generalized ) Quality: other (syncope) Timing: other (sudden) Associated Symptoms: No chest pain, No SOB, No urinary symptoms Note: also denies: swelling in legs Review of Systems See HPI for pertinent positives and negatives. A total of ten systems were reviewed and were otherwise negative. Past Medical & Surgical Medical Problems: (1) Chronic alcohol abuse (2) Colon cancer (3) Diabetes mellitus (4) Heart disease (5) HTN (hypertension) (6) Pancreatitis, alcoholic, acute Surgical Problems: (1) S/P partial colectomy Family History Diabetes mellitus FH: HTN (hypertension) FH: cancer FH: gallbladder disease FH: heart disease FH: lung disease Kidney disease or stones Social History Smoking Status: Never Smoker Alcohol Use: heavy Drug Use: none Marital Status: in relationship Housing Status: lives with significant other Occupation Status: unemployed Current/Historical Medications Scheduled Potassium (Potassium), 2 TABS PO DAILY Allergies Coded Allergies: No Known Allergies (Verified , 09/15/17) Physical Exam Vital Signs Date Time Temp Pulse Resp B/P (MAP) Pulse Ox O2 Delivery O2 Flow Rate FiO2 5/26/18 13:58 76 16 115/76 100 Room Air 09/15/17 12:33 82 09/15/17 12:28 80 16 110/73 100 Room Air 83 124/53 90 119/62 09/15/17 12:28 100 Room Air 09/15/17 11:43 36.6 73 16 140/66 99 Room Air Physical Exam GENERAL: Awake, alert, well-appearing, NAD HENT: Normocephalic, atraumatic. EYES: Normal conjunctiva. Sclera non-icteric. PERRL. No anisocoria. NECK: Supple. No nuchal rigidity. FROM. RESPIRATORY: CTAB, no rhonchi, wheezing, crackles CARDIAC: RRR, no MRG ABDOMEN: Soft, NTND, BS+ MSK: No chest wall TTP, no LE edema NEURO: GCS 15, CN 2-12 intact, moves all 4s on command SKIN: No rash or jaundice noted. Medical Decision & Procedures ER Provider Diagnostic Interpretation: Radiology results as stated below per my review and radiologist interpretation: CHEST ONE VIEW PORTABLE HISTORY: EVALUATE ALTERED MENTAL STATUS/WEAKNESS COMPARISON: Chest 06/07/2017. FINDINGS: No focal lung consolidations to suggest pneumonia. Stable linear scarlike densities within the left midlung zone. Cardiac silhouette is normal in size. No pleural effusions. No pneumothorax. Old, healed right clavicle fracture. IMPRESSION: No significant change compared to the prior study. No acute process. Electronically signed by: Helio Sampson M.D. 09/15/2017 1:01 PM Dictated Date/Time: 09/15/2017 1:00 PM Laboratory Results 09/15/17 12:47 Red Blood Count 4.70, Mean Corpuscular Volume 90.4, Mean Corpuscular Hemoglobin 32.1, Mean Corpuscular Hemoglobin Concent 35.5, Mean Platelet Volume 9.4, Neutrophils (%) (Auto) 77.0, Lymphocytes (%) (Auto) 15.1, Monocytes (%) (Auto) 7.3, Eosinophils (%) (Auto) 0.1, Basophils (%) (Auto) 0.2, Neutrophils # (Auto) 9.60, Lymphocytes # (Auto) 1.88, Monocytes # (Auto) 0.91, Eosinophils # (Auto) 0.01, Basophils # (Auto) 0.02 09/15/17 12:47 Test 09/15/17 12:47 White Blood Count 12.46 K/uL (4.8-10.8) Red Blood Count 4.70 M/uL (4.2-5.4) Hemoglobin 15.1 g/dL (12.0-16.0) Hematocrit 42.5 % (37-47) Mean Corpuscular Volume 90.4 fL (80-100) Mean Corpuscular Hemoglobin 32.1 pg (25-34) Mean Corpuscular Hemoglobin Concent 35.5 g/dl (32-36) Platelet Count 267 K/uL (130-400) Mean Platelet Volume 9.4 fL (7.4-10.4) Neutrophils (%) (Auto) 77.0 % Lymphocytes (%) (Auto) 15.1 % Monocytes (%) (Auto) 7.3 % Eosinophils (%) (Auto) 0.1 % Basophils (%) (Auto) 0.2 % Neutrophils # (Auto) 9.60 K/uL (1.4-6.5) Lymphocytes # (Auto) 1.88 K/uL (1.2-3.4) Monocytes # (Auto) 0.91 K/uL (0.11-0.59) Eosinophils # (Auto) 0.01 K/uL (0-0.5) Basophils # (Auto) 0.02 K/uL (0-0.2) RDW Standard Deviation 42.0 fL (36.4-46.3) RDW Coefficient of Variation 12.7 % (11.5-14.5) Immature Granulocyte % (Auto) 0.3 % Immature Granulocyte # (Auto) 0.04 K/uL (0.00-0.02) Prothrombin Time 11.1 SECONDS (9.0-12.0) Prothromb Time International Ratio 1.1 (0.9-1.1) Activated Partial Thromboplast Time 26.1 SECONDS (21.0-31.0) Partial Thromboplastin Ratio 1.0 Anion Gap 8.0 mmol/L (3-11) Est Creatinine Clear Calc Drug Dose 81.3 ml/min Estimated GFR () 117.2 Estimated GFR (Non- 101.1 BUN/Creatinine Ratio 8.9 (10-20) Calcium Level 8.3 mg/dl (8.5-10.1) Magnesium Level 1.4 mg/dl (1.8-2.4) Total Bilirubin 0.9 mg/dl (0.2-1) Direct Bilirubin 0.2 mg/dl (0-0.2) Aspartate Amino Transf (AST/SGOT) 32 U/L (15-37) Alanine Aminotransferase (ALT/SGPT) 17 U/L (12-78) Alkaline Phosphatase 77 U/L (45-117) Troponin I < 0.015 ng/ml (0-0.045) Total Protein 7.4 gm/dl (6.4-8.2) Albumin 3.2 gm/dl (3.4-5.0) Thyroid Stimulating Hormone (TSH) 1.750 uIu/ml (0.300-4.500) Ethyl Alcohol mg/dL < 3.0 mg/dl (0-3) Laboratory results reviewed by me Medications Administered Medications (Trade) Dose Ordered Sig/Herson Route Start Time Stop Time Status Last Admin Dose Admin Sodium Chloride 1,000 ml @ 999 mls/hr Q1H1M STAT IV 09/15/17 12:14 09/15/17 13:14 DC 09/15/17 12:30 999 MLS/HR Magnesium Sulfate 100 ml @ 100 mls/hr NOW STAT IV 09/15/17 13:43 09/15/17 14:42 09/15/17 13:43 100 MLS/HR Potassium Chloride (Klor-Con Tab) 40 meq NOW STAT PO 09/15/17 13:43 09/15/17 13:44 DC 09/15/17 13:43 40 MEQ Potassium Chloride 100 ml @ 100 mls/hr NOW STAT IV 09/15/17 13:43 09/15/17 14:42 09/15/17 13:43 100 MLS/HR ECG Per My Interpretation Indication: syncope Rate (beats per minute): 70 Rhythm: normal sinus Findings: Q waves (Inferior), prolonged QT Comparison ECG Date: prolonged QTC is old compared to prior ECG ED Course 1208: The patient was evaluated in room B4B. A complete history and physical exam was performed. 1348: I checked on the patient and had a discussion with her. The patient wanted to leave against medical advice. Medical Decision Nursing notes reviewed. Ancillary studies and prior records reviewed. The patient is a 62 year old white female with a past medical history of alcohol abuse who presents to the ED with a cc of sudden syncope beginning shortly prior to arrival. Differential diagnosis: Etiologies such as vasovagal event, infection, hypoglycemia, electrolyte abnormalities, cardiac sources, intracerebral event, toxicologic, neurologic, as well as others were entertained. Patient was seen and evaluated the bedside. Patient does have a history of alcohol abuse. The patient did have an episode of syncope that was seconds long. Patient states she was very hot and lightheaded and doors. Patient denies any chest pain, shortness of breath. Patient had a normal blood sugar on scene. The patient does not have any acute complaints right now. The patient does have a history of hypo-kalemia the patient has been taking supplements. Patient did have blood work completed, EKG, chest x-ray. Chest x-ray is clear. Patient's blood work shows no anemia. Patient did have significant hypokalemia at 2. Patient was given IV and p.o. potassium. Patient's EKG did show some QT prolongation which is consistent with her low potassium. I did discuss giving IV as well as p.o. however she refused the IV. I did discuss that it may be of some benefit to stay in order to make sure that her electrolytes improved especially in light of her syncope. Patient still declined. Patient and I discussed risks and benefits of staying versus leaving AGAINST MEDICAL ADVICE. Patient still decided that she would leave AGAINST MEDICAL ADVICE. Patient did sign paperwork acknowledging such. Patient was told to continue magnesium and potassium supplements through her diet as well as with supplement medications. Patient left AGAINST MEDICAL ADVICE. Medication Reconcilliation Current Medication List: was personally reviewed by me Blood Pressure Screening Patient's blood pressure: Normal blood pressure Impression Primary Impression: Hypokalemia Additional Impressions: Syncope Hypomagnesemia Hypocalcemia Scribe Attestation The scribe's documentation has been prepared under my direction and personally reviewed by me in its entirety. I confirm that the note above accurately reflects all work, treatment, procedures, and medical decision making performed by me. Departure Information Dispostion Against Medical Advice Referrals Lamar Jacobsen C.R.N.P (PCP) Forms HOME CARE DOCUMENTATION FORM, IMPORTANT VISIT INFORMATION Patient Instructions Hypocalcemia Dc, Hypokalemia Dc, Hypomagnesemia Dc, My [facility] Additional Instructions Please return to the emergency department if you have worsening or recurrent symptoms not amenable to at-home treatment. Please call for a follow-up appointment with her primary care physician. Please take your medications as prescribed. If you have other concerns and/or complaints please feel free to also call your primary care physician's office or return the ED for further evaluation, management, and treatment. You may take 800 mg Ibuprofen every 6 hours as needed for pain/fever with food unless told by your physician not to take NSAIDs. You may take tylenol 1000 mg every 6 hours as needed for pain/fever unless told by your physician to not take it or have liver problems. You may take motrin and tylenol separately or at the same time. Take your medications as prescribed. Make sure to supplement both potassium and magnesium and calcium in her diet as well as with vitamins and minerals. You have been examined and treated today on an emergency basis only. This is not a substitute for, or an effort to provide, complete comprehensive medical care. It is impossible to recognize and treat all injuries or illnesses in a single emergency department visit. It is therefore important that you follow up closely with [facility], your PCP, and/or your specialist(s). Call as soon as possible for an appointment. Thank you for your time and consideration. I look forward to speaking with you again soon. Please don't hesitate to call us if you have any questions. Problem Qualifiers Additional Impressions: Syncope Syncope type: heat syncope Encounter type: initial encounter Qualified Codes: T67.1XXA - Heat syncope, initial encounter
[2017-09-15] MEDS ORDERED: SODIUM CHLORIDE 0.9% 1000ML 1,000 ML IV STA (12:14)
[2017-09-15 12:28] VITALS: O2SAT 100
--- NOTE | 2017-09-15 13:02 | DIAGNOSTIC IMAGING REPORT ---
CHEST ONE VIEW PORTABLE HISTORY: EVALUATE ALTERED MENTAL STATUS/WEAKNESS COMPARISON: Chest 06/07/2017. FINDINGS: No focal lung consolidations to suggest pneumonia. Stable linear scarlike densities within the left midlung zone. Cardiac silhouette is normal in size. No pleural effusions. No pneumothorax. Old, healed right clavicle fracture. IMPRESSION: No significant change compared to the prior study. No acute process. Electronically signed by: Helio Sampson M.D. 09/15/2017 1:01 PM Dictated Date/Time: 09/15/2017 1:00 PM
[2017-09-15 13:15] LABS: BASO % 0.2 %; BASO ABS # 0.02 K/uL (0-0.2); EOS % 0.1 %; EOS ABS # 0.01 K/uL (0-0.5); HEMATOCRIT 42.5 % (37-47); HEMOGLOBIN 15.1 g/dL (12.0-16.0); IG# 0.04 K/uL (0.00-0.02); LYMPH % 15.1 %; LYMPH ABS # 1.88 K/uL (1.2-3.4); MEAN CELL VOLUME 90.4 fL (80-100); MEAN CORPUSCULAR HEMOGLOBIN 32.1 pg (25-34); MEAN CORPUSCULAR HGB CONC 35.5 g/dl (32-36); MEAN PLATELET VOLUME 9.4 fL (7.4-10.4); MONO % 7.3 %; MONO ABS # 0.91 K/uL (0.11-0.59); PLATELET COUNT 267 K/uL (130-400); RED CELL DISTRIBUTION WIDTH CV 12.7 % (11.5-14.5); WHITE BLOOD COUNT 12.46 K/uL (4.8-10.8)
[2017-09-15 13:26] LABS: INR 1.1 (0.9-1.1); PTT PATIENT 26.1 SECONDS (21.0-31.0)
[2017-09-15 13:42] LABS: ALBUMIN 3.2 gm/dl (3.4-5.0); ALT/SGPT 17 U/L (12-78); AST/SGOT 32 U/L (15-37); BLOOD UREA NITROGEN 5 mg/dl (7-18); CALCIUM 8.3 mg/dl (8.5-10.1); CARBON DIOXIDE 38 mmol/L (21-32); CREATININE 0.54 mg/dl (0.60-1.20); GLUCOSE 100 mg/dl (70-99); SODIUM 132 mmol/L (136-145)
[2017-09-15] MEDS ORDERED: MAGNESIUM SULFATE 1GM / D5W 100 ML IV STA (13:43)
[2017-09-15] MEDS ORDERED: POTASSIUM CHLR 10 MEQ / WTR 100 ML IV STA (13:43)
[2017-09-15] MEDS ORDERED: POTASSIUM CHLORIDE 20 MEQ TABCR PO STA (13:43)
[2017-09-15 13:51] LABS: ALKALINE PHOSPHATASE 77 U/L (45-117); TOTAL PROTEIN 7.4 gm/dl (6.4-8.2)
[2017-09-15 13:58] VITALS: BP 115/76; PULSE 76; O2SAT 100
== END 2017-09-15 14:34 | disposition left against medical advice (07) ==
LOC: EDBD 11:36 → C.EDB 11:38
DX: E87.6 Hypokalemia (principal); T67.1XXA Heat syncope, initial encounter; X58.XXXA Exposure to other specified factors, initial encounter; E83.42 Hypomagnesemia; E83.51 Hypocalcemia; F10.10 Alcohol abuse, uncomplicated; I11.9 Hypertensive heart disease without heart failure; K85.20 Alcohol induced acute pancreatitis without necrosis or infection; Z85.038 Personal history of other malignant neoplasm of large intestine; E11.9 Type 2 diabetes mellitus without complications; Z79.899 Other long term (current) drug therapy

== ENCOUNTER 2019-02-19 17:43 | Inpatient (IN) ==
[2019-02-19] MEDS ORDERED: FOLIC ACID 1 MG in SYRINGE 9.8 ML IV STA (18:10)
[2019-02-19] MEDS ORDERED: THIAMINE HCL 100 MG in SYRINGE 9 ML IV STA (18:10)
[2019-02-19] MEDS ORDERED: SODIUM CHLORIDE 0.9% 1000ML 2,000 ML IV ONE (18:10)
[2019-02-19 18:50] LABS: Prothrombin Time 9.8 Seconds (9.0-12.0)
[2019-02-19 18:53] LABS: Appearance Urine Cloudy (Clear); Bacteria Urine Automated 1+ (Negative); Bilirubin Urine Negative (Negative); Blood Urine Negative (Negative); Color Urine Yellow; Epithelial Cell Urine Auto >30 /lpf (0-5); Glucose Urine UA Negative (Negative); Ketones Urine 2+ (Negative); Leukocyte Esterase Urine Trace (Negative); Nitrite Urine Negative (Negative); Protein Urine Negative (Negative); Specific Gravity Urine 1.016 (1.000-1.030); Urobilinogen Urine Negative (Negative); pH Urine 6.5 (4.5-7.5)
[2019-02-19] MEDS: MULTIVITAMIN TAB PO SCH (18:58)
[2019-02-19 19:03] LABS: RBC Urine Automated 0-4 /hpf (0-4)
[2019-02-19 19:14] LABS: Hemoglobin 14.7 g/dL (12.0-16.0); Mean Corpuscular Hemoglobin 34.3 pg (25-34); Mean Corpuscular Hgb Conc 36.8 g/dL (32-36); Mean Corpuscular Volume 93.5 fL (80-100); Mean Platelet Volume 8.9 fL (7.4-10.4); Platelet Count 277 K/uL (130-400); RDW Coefficient of Variation 12.2 % (11.5-14.5); Red Blood Count 4.28 M/uL (4.2-5.4); White Blood Count 9.78 K/uL (4.8-10.8)
[2019-02-19 19:15] LABS: Basophils # (auto) 0.01 K/uL (0-0.2); Basophils % (auto) 0.1 %; Immature Granulocytes # (auto) 0.02 K/uL (0.00-0.02); Immature Granulocytes % (auto) 0.2 %; Lymphocytes # (auto) 2.68 K/uL (1.2-3.4); Lymphocytes % (auto) 27.4 %; Monocytes # (auto) 1.51 K/uL (0.11-0.59); Monocytes % (auto) 15.4 %; Neutrophils # (auto) 5.56 K/uL (1.4-6.5); Neutrophils % (auto) 56.9 %; RBC Morphology Unremarkable
[2019-02-19 19:17] LABS: Albumin Globulin Ratio 0.9 (0.9-2); Albumin Level 4.2 gm/dl (3.4-5.0); BUN Creatinine Ratio 24.5 (10-20); Bilirubin,Total 0.9 mg/dl (0.2-1); Calcium 9.7 mg/dl (8.5-10.1); Creatinine Clr Calc Pharmacy 51.4 ml/min; Globulin 4.7 gm/dl (2.5-4.0); Potassium 2.2 mmol/L (3.5-5.1); Total Protein 8.9 gm/dl (6.4-8.2)
[2019-02-19] MEDS ORDERED: POTASSIUM CHLORIDE / WTR 10 MEQ/100 ML PLCT IV ONE (19:21)
[2019-02-19] MEDS ORDERED: MAGNESIUM SULFATE / D5W 1 GM/100 ML BAG IV ONE (19:21)
[2019-02-19] MEDS ORDERED: POTASSIUM CHLORIDE 20 MEQ TABCR PO STA (19:21)
[2019-02-19] MEDS ORDERED: ONDANSETRON INJ 2 MG/ML 2 ML VIAL IV STA (19:21)
[2019-02-19 20:02] LABS: Magnesium 2.5 mg/dl (1.8-2.4); Phosphorus 1.1 mg/dl (2.5-4.9)
[2019-02-19] MEDS ORDERED: IOVERSOL 100ml IV PRN (20:03)
--- NOTE | 2019-02-19 20:08 | CT Scan Report ---
CT head/brain wo con CT DOSE: 537.48 mGy.cm HISTORY: Mental status change pablo TECHNIQUE: Multiaxial CT images of the head were performed without the use of intravenous contrast. A dose lowering technique was utilized adhering to the principles of ALARA. Comparison: None. Findings: The paranasal sinuses and mastoid air cells are clear. The calvarium and skull base are int act. The ventricles and sulci are within normal limits. There is no mass, hematoma, midline shift, or acute infarct. Impression: No acute intracranial abnormality. The above report was generated using voice recognition software. It may contain grammatical, syntax or spelling errors. Electronically signed by: Jose Goldstein M.D. 02/19/2019 8:06 PM
--- NOTE | 2019-02-19 20:14 | CT Scan Report ---
CT abd pelvis IV con only CT DOSE: 257.27 mGy.cm HISTORY: Nausea. Vomiting. n/v TECHNIQUE: Multiaxial CT images of the abdomen and pelvis were performed following the use of intrave nous contrast. A dose lowering technique was utilized adhering to the principles of ALARA. COMPARISON STUDY: 11/04/2015 FINDINGS: Lung bases are clear. Diffuse fatty replacement of the liver. Several small gallstones are present. Kidneys negative for mass or hydronephrosis. Bowel pattern is consistent with a prior right hemicolec cheo. The anastomotic region is patent. Bowel pattern overall is nonobstructive. Bladder is midline. No free fluid within the pelvic cul-de-s ac. IMPRESSION: 1. No acute process in the abdomen or pelvis. 2. Fatty replacement of liver. 3. Several small gallstones. 4. Operative changes consistent with a prior right hemicolectomy. The above report was generated using voice recognition software. It may contain grammatical, syntax or spelling errors. Electronically signed by: Jose Goldstein M.D. 02/19/2019 8:13 PM
--- NOTE | 2019-02-19 21:36 | Emergency Department Note ---
Entered by Alana Powell acting as a scribe for Kiko Choi DO History of Present Illness General Chief complaint: Nausea Stated complaint: NAUSEA, VOMITING, HEADACHE, FEVER Source: patient History of Present Illness Onset (ago): day(s) 3 Location: head (Vomiting) Severity: similar to prior episodes Pain Consistency: + intermittent Maximum Pain Intensity: 5 Current Pain Intensity: 5 Quality: + other (Vomiting) Associated symptoms: + cough, + fever/chills, + headaches, + nausea/vomiting and + other (Positive left ear pain. Negative diarrhea, abdominal pain, rhinorrhea, congestion.) Treatments prior to arrival: none The patient is a 63 year old female presenting to the Emergency Department complaining of intermittent vomiting starting 3 days ago. The patient reports that she has been nauseated and vomiting. She states that she has been feeling warm intermittently but never actually took her temperature and doesnt know if she had a fever. She explains that she has a headache that she currently rates 5/10. She notes that she sometimes has left ear pain. 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 The patient reports that she is an alcoholic. She states that she normally drinks 7 beers per day and that she has been drinking this much for the past 20 years. She denies diarrhea, abdominal pain, cough, rhinorrhea, congestion, use of blood thinners, recent tick bites and recently being exposure to sick contacts. Home Medications Home Medications Medication Instructions Recorded Confirmed Type diphenhydramine-acetaminophen 1 tab PO HS PRN 02/19/19 02/19/19 History [Tylenol PM Extra Strength] potassium gluconate 26,180 mg PO DAILY 02/19/19 02/19/19 History Allergies Allergy/AdvReac Type Severity Reaction Status Date / Time No Known Allergies Allergy Verified 02/19/19 20:26 Past Med/Surg History Social History Preferred Language: [place] Current Living Situation Comment: Lives with boyfriend. Feels Safe at Home: Yes Smoking Status: Never smoker Hx Substance Use: No Review of Systems See HPI for pertinent positives & negatives. and A total of 10 systems reviewed and were otherwise negative Physical Exam Vital Signs Vital Signs - 24 hr 02/19/19 17:48 02/19/19 18:49 10/30/19 18:57 Temperature 36.9 C Temperature Source Oral Sepsis Recent Fever Within 48 Hours No Sepsis New/Unexplained Change in Mental Status No Sepsis Action Taken by Nursing No Action Required Pulse Rate 79 71 72 Pulse Rate [Apical] 80 Pulse Rate from SpO2 Sensor 72 72 Respiratory Rate 16 20 15 Respiratory Effort / Characteristics Non-Labored Respiratory Depth Normal Blood Pressure 111/52 L 98/61 L Blood Pressure [Left Arm] 98/61 L Blood Pressure Mean 71 73 Blood Pressure Mean [Left Arm] 73 Pulse Oximetry 96 99 99 Oxygen Delivery Method Room Air Room Air 02/19/19 19:00 02/19/19 19:28 02/19/19 20:14 Temperature Temperature Source Sepsis Recent Fever Within 48 Hours Sepsis New/Unexplained Change in Mental Status Sepsis Action Taken by Nursing Pulse Rate 81 70 67 Pulse Rate [Apical] Pulse Rate from SpO2 Sensor 78 69 Respiratory Rate 17 20 16 Respiratory Effort / Characteristics Respiratory Depth Blood Pressure 112/60 110/62 Blood Pressure [Left Arm] Blood Pressure Mean 77 78 Blood Pressure Mean [Left Arm] Pulse Oximetry 97 100 100 Oxygen Delivery Method 02/19/19 21:00 Temperature Temperature Source Sepsis Recent Fever Within 48 Hours Sepsis New/Unexplained Change in Mental Status Sepsis Action Taken by Nursing Pulse Rate 66 Pulse Rate [Apical] Pulse Rate from SpO2 Sensor Respiratory Rate 19 Respiratory Effort / Characteristics Respiratory Depth Blood Pressure Blood Pressure [Left Arm] Blood Pressure Mean Blood Pressure Mean [Left Arm] Pulse Oximetry Oxygen Delivery Method GENERAL: Patient is lying in bed. Chronically ill appearing. Cachectic. Disheveled. Alert, well nourished, no distress, non-toxic EYE EXAM: normal conjunctiva, PERRL and EOM's grossly intact OROPHARYNX: no exudate, no erythema, lips, buccal mucosa, and tongue normal and mucous membranes are moist NECK: supple, no nuchal rigidity, no adenopathy, non-tender LUNGS: Clear to auscultation. Normal chest wall mechanics HEART: no murmurs, S1 normal and S2 normal ABDOMEN: abdomen soft, non-tender, normo-active bowel sounds, no masses, no rebound or guarding. BACK: Back is symmetrical on inspection and there is no deformity, no midline tenderness, no CVA tenderness. SKIN: no rashes and no bruising UPPER EXTREMITIES: Tremors in bilateral upper extremities. Upper extremities are grossly normal. LOWER EXTREMITIES: No pitting edema. NEURO EXAM: Normal sensorium, cranial nerves II-XII grossly intact, normal speech, no gross weakness of arms, no gross weakness of legs. Course ED COURSE: Vital signs were reviewed and showed hypotension. The patients medical record was reviewed The above diagnostic studies were performed and reviewed. ED treatments and interventions as stated above. 1756: The patient was evaluated in room B6. A complete history and physical examination was performed. 2037: I updated the patient at this time. 2055: I discussed the patients case with Dr. Anne [facility] hospitalist. He will evaluate the patient for further management. 2100: Upon reevaluation, I discussed my findings with the patient and she understands and agrees with the treatment plan. Based on the patients age, coexisting illnesses, exam and lab findings the decision to treat as an inpatient was made. The patient remained stable while under my care. The patient will be evaluated for further management. Administered Medications Ioversol (Optiray 320 100ml) 93 ml IV ONCE PRN PRN Reason: Interaction Checking Stop: 02/23/19 20:02 Last Admin: 02/19/19 20:03 Dose: 93 ml Documented by: [id number] Multivitamins (Multivitamin Tab) 1 tab PO QAM NEGRO Stop: 03/21/19 18:14 Last Admin: 02/19/19 18:58 Dose: 1 tab Documented by: [id number] Discontinued Medications Folic Acid 1 mg/ Syringe 10 mls @ 5 mls/min IV NOW STA Stop: 02/19/19 18:11 Last Admin: 02/19/19 18:45 Dose: 5 mls/min Documented by: [id number] Thiamine HCl 100 mg/ Syringe 10 mls @ 2 mls/min IV NOW STA Stop: 02/19/19 18:14 Last Admin: 02/19/19 18:45 Dose: 2 mls/min Documented by: [id number] Sodium Chloride (Nss 1000ml) 2,000 mls @ 999 mls/hr IV .Q2H1M ONE Stop: 02/19/19 20:10 Last Infusion: 02/19/19 21:12 Dose: 0 mls/hr Documented by: [id number] Admin: 02/19/19 18:45 Dose: 999 mls/hr Documented by: [id number] Potassium Chloride (K Torito / Wtr) 10 meq in 100 mls @ 100 mls/hr IV ONE ONE Stop: 02/19/19 20:20 Last Infusion: 02/19/19 21:12 Dose: 0 mls/hr Documented by: [id number] Admin: 02/19/19 19:29 Dose: 100 mls/hr Documented by: [id number] Magnesium Sulfate/Dextrose (Magnesium Sulfate / D5w) 1 gm in 100 mls @ 100 mls/hr IV ONE ONE Stop: 02/19/19 20:20 Last Infusion: 02/19/19 21:12 Dose: 0 mls/hr Documented by: [id number] Admin: 02/19/19 19:29 Dose: 100 mls/hr Documented by: [id number] Ondansetron HCl (Zofran) 4 mg IV NOW STA Stop: 02/19/19 19:22 Last Admin: 02/19/19 19:26 Dose: 4 mg Documented by: [id number] Potassium Chloride (Klor-Con M20) 40 meq PO NOW STA Stop: 02/19/19 19:22 Last Admin: 02/19/19 21:12 Dose: 40 meq Documented by: [id number] Medical Decision Making Differential Diagnosis Differential Diagnosis includes but is not limited to dehydration, stroke, anemia, hypoglycemia, hyponatremia, hypernatremia, urinary tract infection, pneumonia, bronchitis, sepsis, gastroenteritis, additional abdominal pathology, metabolic abnormalities and infections. Medical Records Attestation: I reviewed the patient's medical records. Home Medications Current Medication List: was personally reviewed by me Laboratory Data Attestation: I reviewed the patient's lab results. Result diagrams: 02/19/19 18:25 02/19/19 18:25 Lab Results 02/19/19 02/19/19 02/19/19 Range/Units 18:25 18:25 18:25 WBC 9.78 (4.8-10.8) K/uL RBC 4.28 (4.2-5.4) M/uL Hgb 14.7 (12.0-16.0) g/dL Hct 40.0 (37-47) % MCV 93.5 (80-100) fL MCH 34.3 H (25-34) pg MCHC 36.8 H (32-36) g/dL RDW Std Deviation 41.0 (36.4-46.3) fL RDW Coeff of Rosalba 12.2 (11.5-14.5) % Plt Count 277 (130-400) K/uL MPV 8.9 (7.4-10.4) fL Immature Gran % (Auto) 0.2 % Neut % (Auto) 56.9 % Lymph % (Auto) 27.4 % [place] % (Auto) 15.4 % Eos % (Auto) 0.0 % Baso % (Auto) 0.1 % Immature Gran # (Auto) 0.02 (0.00-0.02) K/uL Neut # (Auto) 5.56 (1.4-6.5) K/uL Lymph # (Auto) 2.68 (1.2-3.4) K/uL [place] # (Auto) 1.51 H (0.11-0.59) K/uL Eos # (Auto) 0.00 (0-0.5) K/uL Baso # (Auto) 0.01 (0-0.2) K/uL RBC Morphology Unremarkable PT 9.8 (9.0-12.0) Seconds INR 1.0 (0.9-1.1) Sodium (136-145) mmol/L Potassium (3.5-5.1) mmol/L Chloride (98-107) mmol/L Carbon Dioxide (21-32) mmol/L Anion Gap (3-11) BUN (7-18) mg/dl Creatinine (0.6-1.2) mg/dl Est Cr Clr Drug Dosing ml/min Est GFR ( Amer) Est GFR (Non-Af Amer) BUN/Creatinine Ratio (10-20) Glucose (70-99) mg/dl Osmolality (280-300) mOsm/kg Lactate Calcium (8.5-10.1) mg/dl Phosphorus (2.5-4.9) mg/dl Magnesium (1.8-2.4) mg/dl Total Bilirubin (0.2-1) mg/dl AST (15-37) U/L ALT (12-78) U/L Alkaline Phosphatase (45-117) U/L Total Protein (6.4-8.2) gm/dl Albumin (3.4-5.0) gm/dl Globulin (2.5-4.0) gm/dl Albumin/Globulin Ratio (0.9-2) Lipase (73-393) U/L Urine Color Urine Appearance (Clear) Urine pH (4.5-7.5) Ur Specific [place] (1.000-1.030) Urine Protein (Negative) Urine Glucose (UA) (Negative) Urine Ketones (Negative) Urine Blood (Negative) Urine Nitrite (Negative) Urine Bilirubin (Negative) Urine Urobilinogen (Negative) Ur Leukocyte Esterase (Negative) Urine WBC (Auto) (0-5) /hpf Urine RBC (Auto) (0-4) /hpf U Hyaline Cast (Auto) (0-5) /lpf U Epithel Cells (Auto) (0-5) /lpf Urine Bacteria (Auto) (Negative) Ethyl Alcohol mg/dL 63.6 H (0-3) mg/dl 02/19/19 02/19/19 02/19/19 Range/Units 18:25 18:26 18:26 WBC (4.8-10.8) K/uL RBC (4.2-5.4) M/uL Hgb (12.0-16.0) g/dL Hct (37-47) % MCV (80-100) fL MCH (25-34) pg MCHC (32-36) g/dL RDW Std Deviation (36.4-46.3) fL RDW Coeff of Rosalba (11.5-14.5) % Plt Count (130-400) K/uL MPV (7.4-10.4) fL Immature Gran % (Auto) % Neut % (Auto) % Lymph % (Auto) % [place] % (Auto) % Eos % (Auto) % Baso % (Auto) % Immature Gran # (Auto) (0.00-0.02) K/uL Neut # (Auto) (1.4-6.5) K/uL Lymph # (Auto) (1.2-3.4) K/uL [place] # (Auto) (0.11-0.59) K/uL Eos # (Auto) (0-0.5) K/uL Baso # (Auto) (0-0.2) K/uL RBC Morphology PT (9.0-12.0) Seconds INR (0.9-1.1) Sodium 116 L* (136-145) mmol/L Potassium 2.2 L* (3.5-5.1) mmol/L Chloride 59 L (98-107) mmol/L Carbon Dioxide 41 H* (21-32) mmol/L Anion Gap 17.0 H (3-11) BUN 20 H (7-18) mg/dl Creatinine 0.83 (0.6-1.2) mg/dl Est Cr Clr Drug Dosing 51.4 ml/min Est GFR ( Amer) 87.0 Est GFR (Non-Af Amer) 75.0 BUN/Creatinine Ratio 24.5 H (10-20) Glucose 99 (70-99) mg/dl Osmolality 283 (280-300) mOsm/kg Lactate Cancelled Calcium 9.7 (8.5-10.1) mg/dl Phosphorus (2.5-4.9) mg/dl Magnesium (1.8-2.4) mg/dl Total Bilirubin 0.9 (0.2-1) mg/dl AST 85 H (15-37) U/L ALT 48 (12-78) U/L Alkaline Phosphatase 85 (45-117) U/L Total Protein 8.9 H (6.4-8.2) gm/dl Albumin 4.2 (3.4-5.0) gm/dl Globulin 4.7 H (2.5-4.0) gm/dl Albumin/Globulin Ratio 0.9 (0.9-2) Lipase 251 (73-393) U/L Urine Color Urine Appearance (Clear) Urine pH (4.5-7.5) Ur Specific [place] (1.000-1.030) Urine Protein (Negative) Urine Glucose (UA) (Negative) Urine Ketones (Negative) Urine Blood (Negative) Urine Nitrite (Negative) Urine Bilirubin (Negative) Urine Urobilinogen (Negative) Ur Leukocyte Esterase (Negative) Urine WBC (Auto) (0-5) /hpf Urine RBC (Auto) (0-4) /hpf U Hyaline Cast (Auto) (0-5) /lpf U Epithel Cells (Auto) (0-5) /lpf Urine Bacteria (Auto) (Negative) Ethyl Alcohol mg/dL (0-3) mg/dl 02/19/19 02/19/19 Range/Units 18:35 18:36 WBC (4.8-10.8) K/uL RBC (4.2-5.4) M/uL Hgb (12.0-16.0) g/dL Hct (37-47) % MCV (80-100) fL MCH (25-34) pg MCHC (32-36) g/dL RDW Std Deviation (36.4-46.3) fL RDW Coeff of Rosalba (11.5-14.5) % Plt Count (130-400) K/uL MPV (7.4-10.4) fL Immature Gran % (Auto) % Neut % (Auto) % Lymph % (Auto) % [place] % (Auto) % Eos % (Auto) % Baso % (Auto) % Immature Gran # (Auto) (0.00-0.02) K/uL Neut # (Auto) (1.4-6.5) K/uL Lymph # (Auto) (1.2-3.4) K/uL [place] # (Auto) (0.11-0.59) K/uL Eos # (Auto) (0-0.5) K/uL Baso # (Auto) (0-0.2) K/uL RBC Morphology PT (9.0-12.0) Seconds INR (0.9-1.1) Sodium (136-145) mmol/L Potassium (3.5-5.1) mmol/L Chloride (98-107) mmol/L Carbon Dioxide (21-32) mmol/L Anion Gap (3-11) BUN (7-18) mg/dl Creatinine (0.6-1.2) mg/dl Est Cr Clr Drug Dosing ml/min Est GFR ( Amer) Est GFR (Non-Af Amer) BUN/Creatinine Ratio (10-20) Glucose (70-99) mg/dl Osmolality (280-300) mOsm/kg Lactate Calcium (8.5-10.1) mg/dl Phosphorus 1.1 L* (2.5-4.9) mg/dl Magnesium 2.5 H (1.8-2.4) mg/dl Total Bilirubin (0.2-1) mg/dl AST (15-37) U/L ALT (12-78) U/L Alkaline Phosphatase (45-117) U/L Total Protein (6.4-8.2) gm/dl Albumin (3.4-5.0) gm/dl Globulin (2.5-4.0) gm/dl Albumin/Globulin Ratio (0.9-2) Lipase (73-393) U/L Urine Color Yellow Urine Appearance Cloudy A (Clear) Urine pH 6.5 (4.5-7.5) Ur Specific [place] 1.016 (1.000-1.030) Urine Protein Negative (Negative) Urine Glucose (UA) Negative (Negative) Urine Ketones 2+ H (Negative) Urine Blood Negative (Negative) Urine Nitrite Negative (Negative) Urine Bilirubin Negative (Negative) Urine Urobilinogen Negative (Negative) Ur Leukocyte Esterase Trace H (Negative) Urine WBC (Auto) 1-5 (0-5) /hpf Urine RBC (Auto) 0-4 (0-4) /hpf U Hyaline Cast (Auto) 1-5 (0-5) /lpf U Epithel Cells (Auto) >30 H (0-5) /lpf Urine Bacteria (Auto) 1+ H (Negative) Ethyl Alcohol mg/dL (0-3) mg/dl Imaging Data Radiologist's Impression: Radiology results as stated below per my review and the radiologist's interpretation: CT head/brain wo con CT DOSE: 537.48 mGy.cm HISTORY: Mental status change pablo TECHNIQUE: Multiaxial CT images of the head were performed without the use of intravenous contrast. A dose lowering technique was utilized adhering to the principles of ALARA. Comparison: None. Findings: The paranasal sinuses and mastoid air cells are clear. The calvarium and skull base are intact. The ventricles and sulci are within normal limits. T here is no mass, hematoma, midline shift, or acute infarct. Impression: No acute intracranial abnormality. The above report was generated using voice recognition software. It may contain grammatical, syntax or spelling errors. Electronically signed by: Jose Goldstein M.D. 02/19/2019 8:[address] abd pelvis IV con only CT DOSE: 257.27 mGy.cm HISTORY: Nausea. Vomiting. n/v TECHNIQUE: Multiaxial CT images of the abdomen and pelvis were performed following the use of intravenous contrast. A dose lowering technique was utilized adhering to the principles of ALARA. COMPARISON STUDY: 11/04/2015 FINDINGS: Lung bases are clear. Diffuse fatty replacement of the liver. Several small gallstones are present. Kidneys negative for mass or hydronephrosis. Bowel pattern is consistent with a prior right hemicolectomy. The anastomotic region is patent. Bowel pattern overall is nonobstructive. Bladder is midline. No free fluid within the pelvic cul-de-sac. IMPRESSION: 1. No acute process in the abdomen or pelvis. 2. Fatty replacement of liver. 3. Several small gallstones. 4. Operative changes consistent with a prior right hemicolectomy. The above report was generated using voice recognition software. It may contain grammatical, syntax or spelling errors. Electronically signed by: Jose Goldstein M.D. 02/19/2019 8:13 PM Blood Pressure Blood Pressure Findings: Low blood pressure Blood Pressure Disposition: further management by hospitalist MDM Narrative Patient is a 63-year-old alcoholic that presents the ER for nausea vomiting associated with weakness. She was established blood work was obtained shows no significant leukocytosis or anemia. She is benign abdominal exam. INR was normal. BMP with a sodium of 116, potassium 2.2 and CO2 of 41. She does have an anion gap. Phosphorus was low at 1.1. Magnesium was slightly high at 2.5. Serum osmolality was 283. Alcohol was 65. UA was negative. CT of the abdomen pelvis along with the head was unremarkable. Patient was given IV fluids, IV thiamine, IV folate, multivitamin and IV magnesium prior to the magnesium result. She was also ordered IV potassium. Patient was updated bedside. Significant other was updated bedside and she was admitted to the hospital for further work-up of her hyponatremia and hypokalemia. Impression & Plan Alcohol abuse, Hypokalemia, Hypophosphatemia, Hyponatremia Discharge Plan Visit Data Chief Complaint: Nausea Stated Complaint: NAUSEA, VOMITING, HEADACHE, FEVER ED Provider: Kiko Choi Discharge Problem: Alcohol abuse, Hypokalemia, Hypophosphatemia, Hyponatremia Patient Disposition: Being Evaluated by Hospitalist Forms Stand Alone Forms: My [facility] Prescriptions Prescriptions: No Action potassium gluconate 595 mg (99 mg) Tablet 26,180 mg PO DAILY RF: 0 diphenhydramine-acetaminophen [Tylenol PM Extra Strength] 25-500 mg Tablet 1 tab PO HS PRN (Reason: Pain) RF: 0 Referrals Referrals: Lamar Jacobsen CRNP [Primary Care Provider] - The scribe's documentation has been prepared under my direction and personally reviewed by me in its entirety. I confirm that the note above accurately reflects all work, treatment, procedures, and medical decision making performed by me.
[2019-02-19] MEDS: POTASSIUM CHLORIDE / WTR 10 MEQ/100 ML PLCT IV SCH ×2 (22:06→23:44)
[2019-02-19] MEDS ORDERED: POTASSIUM PHOS 3 MMOL/1 ML INFUSION IV STA (23:01)
[2019-02-19] MEDS ORDERED: MAGNESIUM HYDROXIDE SUSP 30 ML UDC PO PRN (23:01)
[2019-02-19] MEDS ORDERED: ALUMINUM/MAGNESIUM SUSP 30 ML UDC PO PRN (23:01)
[2019-02-19] MEDS ORDERED: ONDANSETRON INJ 2 MG/ML 2 ML VIAL IV PRN (23:01)
[2019-02-19] MEDS ORDERED: POTASSIUM PHOSPHATE 30 MMOL in SODIUM CHLORIDE 0.9% 500 ML IV ONE (23:15)
[2019-02-19] MEDS ORDERED: LORazepam 1 MG TAB PO PRN (23:29)
[2019-02-19] MEDS ORDERED: SODIUM CHLORIDE 1 GM TABLET PO SCH (23:30)
--- NOTE | 2019-02-19 23:34 | History & Physical Report ---
Date of Service February 19, 2019 Assessment & Plan (1) Alcohol abuse: 20 years of drinking 5-7 [address] on alcohol withdrawal program. Placed on thiamine 100 mg p.o. daily, folic acid 1 mg p.o. daily, vitamin B12 1000 mcg p.o. daily and Nephrocaps daily. Patient states that she will be going home tomorrow night no matter what our recommendations are. Present on Admission?: Yes (2) Hypokalemia: Placed on Klor-Con 40 mEq p.o. 3 times daily. K-Phos 30 mmol. IV Repeat laboratories in a.m. Present on Admission?: Yes (3) Hypophosphatemia: See above Present on Admission?: Yes (4) Hyponatremia: Sodium level is 116. Serum osmolality is 283. Urine osmolality is 486. Placed on sodium chloride tablets 2 g p.o. twice daily. No further IV fluids. 1500 cc fluid restriction. Patient states that she is leaving tomorrow night no matter what. If that is so, her maximum sodium at that time should be 125. She was advised not to do so, and it would be AGAINST MEDICAL ADVICE. Present on Admission?: Yes (5) Colon cancer: Status post right hemicolectomy. No active issues Present on Admission?: Yes History of Present Illness Chief Complaint: The patient presents to the emergency department with complaint of intermittent nausea and vomiting that began 3 days ago, the last time she drank alcohol. Primary Care Provider: MARIO Villaseñor The patient is a 63-year-old female with a past medical history including alcoholism, status post right hemicolectomy, diabetes mellitus and hypertension, who presents the emergency department with complaint of 3 days of intermittent nausea and vomiting since her last alcohol intake. She has had no recent travels or sick exposures. Allergies Allergy/AdvReac Type Severity Reaction Status Date / Time No Known Allergies Allergy Verified 02/19/19 20:26 Home Medications Home Medications Medication Instructions Recorded Confirmed Type diphenhydramine-acetaminophen 1 tab PO HS PRN 02/19/19 02/19/19 History [Tylenol PM Extra Strength] potassium gluconate 26,180 mg PO DAILY 02/19/19 02/19/19 History Past Med/Surg History Social History Preferred Language: Maldivian Current Living Situation Comment: Lives with boyfriend. Feels Safe at Home: Yes Smoking Status: Never smoker Hx Substance Use: No Review of Systems Review of Systems: The patient denies chest pain, palpitations, shortness of breath, dyspnea on exertion, cough, lower extremity swelling, sore throat, fevers, chills, sweats, diarrhea , constipation, abdominal pain, pelvic pain, blood in urine or stool, dysuria, urinary frequency or urgency, lightheadedness, dizziness, memory loss, loss of consciousness, rash, abnormal bruising or bleeding, imbalance, focal or generalized weakness, numbness or tingling in arms or legs, generalized arthralgias or myalgias, back or neck pain, or night sweats. The review of systems is otherwise negative other than for that already noted above, and at least 10 systems have been reviewed. Physical Exam Physical Exam: The patient is awake, alert and oriented 3, looks older than her stated age, normocephalic and atraumatic, lying in bed and in no acute distress. HEENT--PERRL, EOMI, mucous membranes and oropharynx dry. Neck--supple. No JVD. No bruits. Thyroid normal, trachea midline, no adenopathy. Heart--normal S1 and S2. No murmurs, rubs or gallops. Lungs--clear bilaterally, no respiratory distress, no accessory muscle use. Abdomen--normal bowel sounds and soft. Nontender. Nondistended. Extremities--no cyanosis or clubbing. No edema. Dermatologic--normal skin turgor, normal color, no abnormal lymph nodes, no rash. Neurologic--cranial nerves II through XII grossly intact. Rheumatologic--normal range of motion. Psychiatric--normal affect. Results & Data Vital Signs (Past 12 Hours) Vital Signs Temp Pulse Pulse Resp BP BP Pulse Ox 02/19/19 22:07 74 17 104/54 L 02/19/19 22:00 74 18 02/19/19 21:15 69 21 02/19/19 21:14 73 22 100/60 98 02/19/19 21:00 66 19 02/19/19 20:14 67 16 110/62 100 02/19/19 19:28 70 20 112/60 100 02/19/19 19:00 81 17 97 02/19/19 18:57 72 15 99 02/19/19 18:49 71 80 20 98/61 L 98/61 L 99 02/19/19 17:48 98.4 F 79 16 111/52 L 96 Laboratory Results Laboratory Results WBC 9.78 K/uL (4.8-10.8) 02/19/19 18:25 RBC 4.28 M/uL (4.2-5.4) 02/19/19 18:25 Hgb 14.7 g/dL (12.0-16.0) 02/19/19 18:25 Hct 40.0 % (37-47) 02/19/19 18:25 MCV 93.5 fL (80-100) 02/19/19 18:25 MCH 34.3 pg (25-34) H 02/19/19 18:25 MCHC 36.8 g/dL (32-36) H 02/19/19 18:25 RDW Std Deviation 41.0 fL (36.4-46.3) 02/19/19 18:25 RDW Coeff of Rosalba 12.2 % (11.5-14.5) 02/19/19 18:25 Plt Count 277 K/uL (130-400) 02/19/19 18:25 MPV 8.9 fL (7.4-10.4) 02/19/19 18:25 Immature Gran % (Auto) 0.2 % 02/19/19 18:25 Neut % (Auto) 56.9 % 02/19/19 18:25 Lymph % (Auto) 27.4 % 02/19/19 18:25 [place] % (Auto) 15.4 % 02/19/19 18:25 Eos % (Auto) 0.0 % 02/19/19 18:25 Baso % (Auto) 0.1 % 02/19/19 18:25 Immature Gran # (Auto) 0.02 K/uL (0.00-0.02) 02/19/19 18:25 Neut # (Auto) 5.56 K/uL (1.4-6.5) 02/19/19 18:25 Lymph # (Auto) 2.68 K/uL (1.2-3.4) 02/19/19 18:25 [place] # (Auto) 1.51 K/uL (0.11-0.59) H 02/19/19 18:25 Eos # (Auto) 0.00 K/uL (0-0.5) 02/19/19 18:25 Baso # (Auto) 0.01 K/uL (0-0.2) 02/19/19 18:25 RBC Morphology Unremarkable 02/19/19 18:25 PT 9.8 Seconds (9.0-12.0) 02/19/19 18:25 INR 1.0 (0.9-1.1) 02/19/19 18:25 Sodium 116 mmol/L (136-145) L* 02/19/19 18:25 Potassium 2.2 mmol/L (3.5-5.1) L* 02/19/19 18:25 Chloride 59 mmol/L (98-107) L 02/19/19 18:25 Carbon Dioxide 41 mmol/L (21-32) H* 02/19/19 18:25 Anion Gap 17.0 (3-11) H 02/19/19 18:25 BUN 20 mg/dl (7-18) H 02/19/19 18:25 Creatinine 0.83 mg/dl (0.6-1.2) 02/19/19 18:25 Est Cr Clr Drug Dosing 51.4 ml/min 02/19/19 18:25 Est GFR ( Amer) 87.0 02/19/19 18:25 Est GFR (Non-Af Amer) 75.0 02/19/19 18:25 BUN/Creatinine Ratio 24.5 (10-20) H 02/19/19 18:25 Glucose 99 mg/dl (70-99) 02/19/19 18:25 Osmolality 283 mOsm/kg (280-300) 02/19/19 18:26 Lactate Cancelled 02/19/19 18:26 Calcium 9.7 mg/dl (8.5-10.1) 02/19/19 18:25 Phosphorus 1.1 mg/dl (2.5-4.9) L* 02/19/19 18:36 Magnesium 2.5 mg/dl (1.8-2.4) H 02/19/19 18:36 Total Bilirubin 0.9 mg/dl (0.2-1) 02/19/19 18:25 AST 85 U/L (15-37) H 02/19/19 18:25 ALT 48 U/L (12-78) 02/19/19 18:25 Alkaline Phosphatase 85 U/L (45-117) 02/19/19 18:25 Total Protein 8.9 gm/dl (6.4-8.2) H 02/19/19 18:25 Albumin 4.2 gm/dl (3.4-5.0) 02/19/19 18:25 Globulin 4.7 gm/dl (2.5-4.0) H 02/19/19 18:25 Albumin/Globulin Ratio 0.9 (0.9-2) 02/19/19 18:25 Lipase 251 U/L (73-393) 02/19/19 18:25 Urine Color Yellow 02/19/19 18:35 Urine Appearance Cloudy (Clear) A 02/19/19 18:35 Urine pH 6.5 (4.5-7.5) 02/19/19 18:35 Ur Specific [place] 1.016 (1.000-1.030) 02/19/19 18:35 Urine Protein Negative (Negative) 02/19/19 18:35 Urine Glucose (UA) Negative (Negative) 02/19/19 18:35 Urine Ketones 2+ (Negative) H 02/19/19 18:35 Urine Blood Negative (Negative) 02/19/19 18:35 Urine Nitrite Negative (Negative) 02/19/19 18:35 Urine Bilirubin Negative (Negative) 02/19/19 18:35 Urine Urobilinogen Negative (Negative) 02/19/19 18:35 Ur Leukocyte Esterase Trace (Negative) H 02/19/19 18:35 Urine WBC (Auto) 1-5 /hpf (0-5) 02/19/19 18:35 Urine RBC (Auto) 0-4 /hpf (0-4) 02/19/19 18:35 U Hyaline Cast (Auto) 1-5 /lpf (0-5) 02/19/19 18:35 U Epithel Cells (Auto) >30 /lpf (0-5) H 02/19/19 18:35 Urine Bacteria (Auto) 1+ (Negative) H 02/19/19 18:35 Urine Osmolality 486 mOsm/kg (500-800) L 02/19/19 18:35 Ethyl Alcohol mg/dL 63.6 mg/dl (0-3) H 02/19/19 18:25 Diagnostic Findings [place] [phone] CT Scan Report Patient: CHRISTY ANDINO AAdmit Date: 02/19/19 MR#: [id number]: [address] Acct ID:[id number]: Date: 1955[facility] Zip: [place] [address] Age: 63Location: ED Sex: F Room/Bed: Att Phy:Diagnosis: NAUSEA, VOMITING, HEADACHE, FEVER Brianna Phy: Lamar Jacobsen CRNPService Date: 02/19/19 Fam Phy:Interpreting Phy: Jose Goldstein MD Admit Phy: Ordering Phy: Kiko Choi DO cc: ~ CT abd pelvis IV con only CT DOSE: 257.27 mGy.cm HISTORY: Nausea. Vomiting. n/v TECHNIQUE: Multiaxial CT images of the abdomen and pelvis were performed following the use of intravenous contrast. A dose lowering technique was utilized adhering to the principles of ALARA. COMPARISON STUDY: 11/04/2015 FINDINGS: Lung bases are clear. Diffuse fatty replacement of the liver. Several small gallstones are present. Kidneys negative for mass or hydronephrosis. Bowel pattern is consistent with a prior right hemicolectomy. The anastomotic region is patent. Bowel pattern overall is nonobstructive. Bladder is midline. No free fluid within the pelvic cul-de-sac. IMPRESSION: 1. No acute process in the abdomen or pelvis. 2. Fatty replacement of liver. 3. Several small gallstones. 4. Operative changes consistent with a prior right hemicolectomy. The above report was generated using voice recognition software. It may contain grammatical, syntax or spelling errors. Electronically signed by: Jose Goldstein M.D. 02/19/2019 8:13 PM Dictated: 02/19/192009 Transcribed: 02/19/192009 [place], [place] [phone] CT Scan Report Patient: CHRISTY ANDINO AAdmit Date: 02/19/19 MR#: [id number]: [address] Acct ID:[id number]: Date: [address] Zip: [place] [address] Age: 63Location: ED Sex: F Room/Bed: Att Phy:Diagnosis: NAUSEA, VOMITING, HEADACHE, FEVER Brianna Phy: Lamar Jacobsen CRNPService Date: 02/19/19 Fam Phy:Interpreting Phy: Jose Goldstein MD Admit Phy: Ordering Phy: Kiko Choi DO cc: ~ CT head/brain wo con CT DOSE: 537.48 mGy.cm HISTORY: Mental status change pablo TECHNIQUE: Multiaxial CT images of the head were performed without the use of intravenous contrast. A dose lowering technique was utilized adhering to the principles of ALARA. Comparison: None. Findings: The paranasal sinuses and mastoid air cells are clear. The calvarium and skull base are intact. The ventricles and sulci are within normal limits. There is no mass, hematoma, midline shift, or acute infarct. Impression: No acute intracranial abnormality. The above report was generated using voice recognition software. It may contain grammatical, syntax or spelling errors. Electronically signed by: Jose Goldstein M.D. 02/19/2019 8:06 PM Dictated: 02/19/192005 Transcribed: 02/19/192005 9 Code Status & VTE Plan Code Status Full code VTE Prophylaxis Plan VTE Prophylaxis will be ordered: Yes PG Care Time/CCT Total # of Minutes Spent Total Time Spent with Patient: Total time spent is greater than 50% in coordination of care (as documented) at patient's floor/unit and/or counseling patient:
[2019-02-20] MEDS: POTASSIUM CHLORIDE 20 MEQ TABCR PO SCH ×3 (00:15→14:05)
[2019-02-20 06:46] LABS: Albumin Globulin Ratio 0.9 (0.9-2); Albumin Level 2.8 gm/dl (3.4-5.0); BUN Creatinine Ratio 15.9 (10-20); Calcium 7.8 mg/dl (8.5-10.1); Creatinine Clr Calc Pharmacy 70.1 ml/min; Est GFR (African American) 112.4; Globulin 3.2 gm/dl (2.5-4.0); Magnesium 2.2 mg/dl (1.8-2.4); Potassium 3.6 mmol/L (3.5-5.1)
[2019-02-20 07:11] LABS: Phosphorus 3.3 mg/dl (2.5-4.9)
[2019-02-20 07:59] VITALS: TEMP 98.8
[2019-02-20] MEDS ORDERED: FOLIC ACID 1 MG TAB PO SCH (09:00)
[2019-02-20] MEDS ORDERED: THIAMINE HCL 100 MG TAB PO SCH (09:00)
[2019-02-20] MEDS ORDERED: VITAMIN B COMPLEX TAB PO SCH (09:00)
[2019-02-20] MEDS ORDERED: CYANOCOBALAMIN 500 MCG TABLET (VITAMIN B-12) PO SCH (09:00)
[2019-02-20] MEDS: MULTIVITAMIN TAB PO SCH (09:42)
[2019-02-20 11:32] VITALS: BP 111/67; PULSE 70; O2SAT 96
--- NOTE | 2019-02-20 14:02 | Discharge Summary ---
Date of Service February 20, 2019 Admission HPI Per Admitting Provider The patient is a 63-year-old female with a past medical history including alcoholism, status post right hemicolectomy, diabetes mellitus and hypertension, who presents the emergency department with complaint of 3 days of intermittent nausea and vomiting since her last alcohol intake. She has had no recent travels or sick exposures. Admission Exam Per Admitting Provider The patient is awake, alert and oriented 3, looks older than her stated age, normocephalic and atraumatic, lying in bed and in no acute distress. HEENT--PERRL, EOMI, mucous membranes and oropharynx dry. Neck--supple. No JVD. No bruits. Thyroid normal, trachea midline, no adenopathy. Heart--normal S1 and S2. No murmurs, rubs or gallops. Lungs--clear bilaterally, no respiratory distress, no accessory muscle use. Abdomen--normal bowel sounds and soft. Nontender. Nondistended. Extremities--no cyanosis or clubbing. No edema. Dermatologic--normal skin turgor, normal color, no abnormal lymph nodes, no rash. Neurologic--cranial nerves II through XII grossly intact. Rheumatologic--normal range of motion. Psychiatric--normal affect. Principal Diagnosis hyponatremia, intractable nausea/vomiting Discharge Exam Constitutional WD/WN, vitals as above Eyes PERRL, conjunctivae normal, anicteric sclerae ENMT external ear and nose normal, oropharynx normal Neck trachea midline, no thyromegaly Respiratory normal respiratory effort, lungs clear to auscultation Cardiovascular RRR, no murmur, no edema Gastrointestinal (Abdomen) normal bowel sounds, soft, nontender, no hepatosplenomegaly Musculoskeletal no cyanosis or clubbing, extremities motor strength 5/5 Skin no rashes, warm and dry Psychiatric Orientation: alert and oriented x 3 Affect: + anxious affect Discharge Data Allergies Allergy/AdvReac Type Severity Reaction Status Date / Time No Known Allergies Allergy Verified 02/19/19 20:26 Consultations 02/19/19 20:25 ED Decision to Admit Stat 02/19/19 23:01 Consult Case Management - Discharge Planning Routine Ordered Studies 02/19/19 18:10 CT abd pelvis IV con only Stat CT head/brain wo con Stat Hospital Course (1) Alcohol abuse: -Patient discloses 20 years of drinking 7 beers daily. -Placed on Alcohol withdrawal program -Thiamine 100mg PO QD, Folic Acid 1mg PO QD, Vitamin B12 1000mcg PO QD, Nephrocaps QD -Ativan 1-3mg PRN AWSS 6-10 -Noted that she would want to stop abusing alcohol at this time, plans on starting today. -Patient doing well this AM, states that she is interested in going home. (2) Hypokalemia: -Placed on Klor-Con 40 mEq p.o. 3 times daily. -K-Phos 30 mmol. IV -K 3.6 this AM (3) Hypophosphatemia: See above (4) Hyponatremia: Sodium level was 116 on admission Received 1L NSS bolus in ED Placed on sodium chloride tablets 2 g p.o. twice daily. No further IV fluids. 1500 ml fluid restriction Na 132 upon DC. (5) Colon cancer: Status post right hemicolectomy. No active issues Total Time Total Time Spent Total Time Spent (In Minutes): >30 Discharge Plan Discharge Items Patient Disposition: Home - Self-Care Reason For Visit: HYPONATREMIA,ALCOHOLISM Discharge Diagnosis: Hyponatremia, Hypokalemia, Hypophosphatemia Activity: Resume your previous activity Non-emergency contact: Primary Care Provider Call non-emergency contact if: you have any medication questions, your symptoms worsen and your temperature is above 101 Follow-up/Referrals: Lamar Jacobsen CRNP [Primary Care Provider] - 02/27/19 1:15 pm (Please, follow up at [facility] with Lamar MARTIN on February 27 at 1:15 pm. *If you need to change this appointment, call the office at [phone].) Diet: Regular Addtl Attending Provider Instructions: nausea/vomiting -this fortunately has resolved -it's not entirely clear whether the nausea was from the drink upsetting your stomach (quite possible), withdrawal from having stopped drinking (also possible) or a stomach virus (one of the most common reasons we see nausea and vomiting) -since you're not still having an upset stomach or pain, the things that alcohol can do to your stomach to cause nausea/vomiting (like stomach ulcers) aren't likely; that said, if you start to notice pain in your stomach, and especially pain after you eat, talk with your PCP because a short course of a stomach medicine would likely help settle things down -we'll be sending you with a prescription for zofran (ondansetron) in case you get nauseated again - it's a pretty safe medicine, so with what you've just been through, if you even start to feel nausea in the next few days we'd have you take the medicine to help keep things from spiralling out of control again low sodium (hyponatremia) -incidentally noted when you had labwork done in the ER, your blood electrolytes, and most importantly sodium, were quite low -this is because when people drink beer heavily, they're usually replacing nutrition with beer-calories, and then people get low on electrolytes and somewhat malnourished -your sodium levels have improved to where you have been running lately - a little low but acceptable - and we'll expect that over time with no drinking (and better eating) that your levels will slowly improve (and as well we'd expect your protein levels to improve) alcohol abuse -we're extremely happy that you've decided it's time to quit drinking, and with motivation and the support from Amadou, we totally expect you to be successful! -as we discussed, right now it looks like you've actually managed to avoid serious complications from your prior drinking - outside of the malnutrition issues we talked about above, you're not showing any signs of serious liver problems or brain disease or the other permanent damages that heavy drinking can do -we'll want you to take thiamine and folic acid for the foreseeable future - the longer it is from when you were drinking heavily, then you and your PCP can talk about stopping them - but these are nutrients that frequently get low in people who drink a lot, and replacing them helps protect your brain and nerves from alcohol related damage -remember that it's very normal to have cravings to drink, feel like you're not going to be able to do it, or even to have a relapse. if/when that happens, just pick yourself up and move on once you're sober again - beating yourself up never helps people do better! -as we discussed, you're out of the window of when alcohol withdrawal would usually happen - for most people, withdrawal is at its worst about 3 days after their last drink -- so since you're four days out without any serious signs of withdrawal, you should be past the point of running into trouble Pending Studies at Discharge: No Stand-Alone Forms: My [facility], Smoking Cessation Medications and DC Order Prescriptions: New thiamine HCl (vitamin B1) 100 mg tablet 100 mg PO DAILY Qty: 30 RF: 0 folic acid 1 mg tablet 1 mg PO DAILY Qty: 30 RF: 0 ondansetron 4 mg tablet,disintegrating 4 mg PO TID PRN (Reason: nausea and vomiting) Qty: 30 RF: 0 Continued potassium gluconate 595 mg (99 mg) Tablet 26,180 mg PO DAILY RF: 0 Discontinued diphenhydramine-acetaminophen [Tylenol PM Extra Strength] 25-500 mg Tablet 1 tab PO HS PRN (Reason: Pain) RF: 0 Discharge Orders: Discharge Order (Routine); Ordered 02/20/19 Ordered By: Keyon Chatterjee Admission Data Admit Date/Time: 02/19/19 21:35 Attending Provider: Kiko Steele Admit Provider: Jai Anne Primary Care Provider: Lamar Jacobsen Other Providers: Jai Anne Other Interventions: Discharge Summary Assessment (RN) Last Done: 02/20/19 13:59 DC Date/Time DO NOT enter until pt leaves facility: 02/20/19 16:23 Supervising Physician Co-Signing Physician Notes I personally examined the patient and verified all ramírez points of history and exam, discussed case, and agree with decision making with Dr Chatterjee. Feeling better. No further nausea or vomiting. Would like to go home. Notes that she is ready to permanently quit drinking. Her last drink was Sunday. She discusses having a good support system with her family. Vitals noted, in general she is awake and alert pleasant no distress. HEENT normocephalic atraumatic mucous membranes moist. Breathing unlabored no accessory muscle use good effort. Skin shows no rashes no pallor or icterus. She is not tremulous. Hyponatremiaacute on chronicappears to be in acute from hyponatremic dehydration from nausea and vomiting superimposed on chronic related to chronic alcohol abuse (whether purely from the volume/polydipsia mechanism or from a degree of a beer potomania mechanism, or both)-corrected more quickly than desired, but fortunately she is mentally and neurologically totally intact. We discussed the need for good oral intake, but noted also that given that she is likely to be sober and will probably be easier to maintain decent fluid and electrolyte status. Alcohol abuseshe is 4 days past her last drink and expressing his desire to quit drinking. We applauded this, and encouraged her in her efforts. Also discussed how she does not appear to have had significant insurmountable "fall out" from her alcohol abuse yetmaking it even more worthwhile for her to quit. Continue thiamine and folate for now. Protein malnutritionmore than likely due to consuming significant empty calories and alcohol and not much foodher oral history corroborates this. Stable for homeclose outpatient follow-up. Resident Activity Tracking Resident Involvement: Resident Care Provided Care Provided: Adult Hospital Medicine
--- NOTE | 2019-02-25 08:34 | Coding Query ---
MALNUTRITION To promote full compliance with coding requirements relating to patient care, physician participation is requested in all cases of research compliance specialist uncertainty. Please assist us with the question(s) below: Please place an X within the parenthesis (x). If other, please document: "Malnutrition" is documented in this record on the Discharge Summary. If possible, please check the box that provides a more specific diagnosis: ( ) Mild malnutrition ( ) Moderate malnutrition ( ) Severe malnutrition ( ) Protein malnutrition (kwashiorkor) ( ) Severe protein calorie malnutrition (x ) Protein malnutrition, moderate ( ) Other (please specify): Was this diagnosis present on admission? Please place an X within the parenthesis (x). (x) Present on admission ( ) Not present on admission ( ) Unable to be clinically determined Thank you Carole Randall [facility]
== END 2019-02-20 16:23 | disposition home or self-care (01) | DRG 897 ==
LOC: ED 17:43 → 2N 21:35 → SUATTDRO 21:35 → 2N 22:21

== ENCOUNTER 2023-09-03 10:57 | Inpatient (IN) ==
[2023-09-03] MEDS: SODIUM CHLORIDE 0.9% 1,000 ML IV ONE (11:20)
[2023-09-03 11:51] LABS: Anion Gap 30 (3-11); BUN Creatinine Ratio 17.1 (10-20); Blood Urea Nitrogen 12 mg/dl (6-23); Calcium 10.4 mg/dl (8.6-10.3); Carbon Dioxide 14 mmol/L (21-32); Chloride 97 mmol/L (98-107); Est GFR (African American) 103.2 ml/min; Glucose 65 mg/dl (70-99(Fasting)); Potassium 4.1 mmol/L (3.5-5.1); Sodium 141 mmol/L (136-145)
--- NOTE | 2023-09-03 12:00 | Emergency Department Note ---
Impression & Plan Alcohol withdrawal ADMIT ED Provider Note HPI: History obtained from patient. The patient is a 68-year-old female who presents the emergency department with concern for alcohol withdrawal. Patient has a longstanding history of alcohol abuse. She states that her last drink was last evening at some point. Patient states that she began to feel tremulous and nauseous today and knew that she was going through alcohol withdrawal and therefore came to the ER to be assessed. Patient states that she is interested in stopping drinking. On arrival here to the ED the patient is tachycardic and tremulous, she is able to give me a coherent history on arrival. Patient denies any history of seizures. ROS: - Per HPI Differential Diagnosis: Acute alcohol withdrawal, delirium tremens, anxiety attack, amongst other potential pathologies. *Outpatient medications and allergy history reviewed. PE: General: Alert, anxious appearing HEENT: Normocephalic, trachea midline Eyes: Extraocular eye movement is intact, no scleral erythema Pulmonary: Clear to auscultation bilaterally, no wheezing Cardio: Tachycardic rate with regular rhythm GI: Abdomen is soft to palpation : No suprapubic tenderness MSK: No evidence of trauma or malformation of the extremities, no edema Skin: No evidence of rash Neuro: Alert, no focal deficits, patient is tremulous in the bilateral upper extremities and jaw Psychiatric: Anxious appearing but overall cooperative INDEPENDENT INTERPRETATIONS: playground monitor: (As interpreted by myself): - An order was placed for continuous cardiac monitoring - Patient was noted to be in sinus tachycardia with a rate of 113 Interventions provided in ED: -IV Ativan, IV fluid bolus, IV thiamine, IV folate Medical Decision Making: IV was established and lab work obtained, patient was placed on hospital monitor. Shortly after my assessment patient was given IV Ativan over concern for acute alcohol withdrawal. Lab work shows alcohol level elevated mildly at 31.3, patient states her last drink was at some point last evening. Serum bicarbonate level is also reduced at 14 likely secondary to the patient's alcohol use. On my reassessment patient's heart rate is improved and she remains tremulous although she states the Ativan did help with her symptoms. Patient states she is interested in stopping drinking and she would like to be admitted to the hospital for her withdrawal. Given her tachycardia and tremulousness I do feel this is indicated. Case was discussed with the on-call hospitalist, Dr. Ochoa, and the patient was placed for admission in stable condition for further care. Consultants/Discussions held with other healthcare providers: -Hospitalist, Dr. Ochoa Disposition discussion held by myself with: -Patient Diagnosis: 1. Alcohol withdrawal, acute 2. Tremulousness, acute 3. Nausea, acute 4. Sinus tachycardia secondary to alcohol withdrawal, acute Disposition: Admission Jose Saldaña DO Emergency Medicine Past Med/Surg History Medical History (Updated 09/03/23 @ 15:16 by Jose Saldaña DO) HTN (hypertension) Heart disease Diabetes mellitus Chronic alcohol abuse Colon cancer Surgical History S/P partial colectomy Social History Smoking Status: Never smoker Tobacco Type: Cigarettes Hx Alcohol Use: Yes Alcohol type: beer Hx Substance Use: No Preferred Language: Serbian Communication Ability: Effective School Coordinator Required: No Beliefs That Will Affect Care: None Current Living Situation: Significant Other Current Living Situation Comment: Lives with boyfriend. Feels Safe at Home: Yes Assistive Devices: None Allergies Allergies Allergy/AdvReac Type Severity Reaction Status Date / Time No Known Allergies Allergy Verified 09/03/23 11:43 Home Meds Home Medications Medication Instructions Recorded Confirmed potassium chloride 20 mEq 20 meq PO DAILY 09/03/23 09/03/23 tablet,extended release Results & Data (ED) Vital Signs Vital Signs - 24 hr 09/03/23 11:02 09/03/23 11:10 09/03/23 12:40 Temperature 36.8 C Temperature Source Oral Pulse Rate 77 124 H Pulse Rate [Left Finger] 106 H Pulse Rhythm [Left Finger] Regular Pulse Strength [Left Finger] Normal Respiratory Rate 22 26 H Respiratory Effort / Characteristics Non-Labored Spontaneous Respiratory Depth Normal Respiratory Pattern Regular Blood Pressure 158/85 H Blood Pressure [Right Arm] 142/83 H Blood Pressure Mean 109 Blood Pressure Mean [Right Arm] 102 Blood Pressure Position Lying Pulse Oximetry 98 100 Oxygen Delivery Method Room Air Room Air Sepsis Recent Fever Within 48 Hours No Sepsis New/Unexplained Change in Mental Status No Sepsis Action Taken by Nursing No Action Required 09/03/23 15:04 Temperature Temperature Source Pulse Rate 102 H Pulse Rate [Left Finger] Pulse Rhythm [Left Finger] Pulse Strength [Left Finger] Respiratory Rate Respiratory Effort / Characteristics Respiratory Depth Respiratory Pattern Blood Pressure Blood Pressure [Right Arm] Blood Pressure Mean Blood Pressure Mean [Right Arm] Blood Pressure Position Pulse Oximetry Oxygen Delivery Method Sepsis Recent Fever Within 48 Hours Sepsis New/Unexplained Change in Mental Status Sepsis Action Taken by Nursing Laboratory Data 09/03/23 11:20 Lab Results 09/03/23 09/03/23 Range/Units 11:20 15:07 Sodium 141 (136-145) mmol/L Potassium 4.1 (3.5-5.1) mmol/L Chloride 97 L (98-107) mmol/L Carbon Dioxide 14 L (21-32) mmol/L Anion Gap 30 H (3-11) BUN 12 (6-23) mg/dl Creatinine 0.70 (0.6-1.2) mg/dl Est Cr Clr Drug Dosing 83.0 ml/min Est GFR ( Amer) 103.2 ml/min Est GFR (Non-Af Amer) 89.0 ml/min BUN/Creatinine Ratio 17.1 (10-20) Glucose 65 L (70-99(Fasting)) mg/dl POC Glucose 238 H (70-99) mg/dl Calcium 10.4 H (8.6-10.3) mg/dl Ethyl Alcohol mg/dL 31.1 H (<10.0) mg/dl Administered Medications Discontinued Medications Dextrose (Dextrose 50% 50 Ml Syringe) 25 ml IV NOW STA Stop: 09/03/23 14:01 Last Admin: 09/03/23 14:21 Dose: 25 ml Documented By: YAN Sodium Chloride (Nss) 1,000 mls @ 999 mls/hr IV .Q1H1M ONE Stop: 09/03/23 12:16 Last Admin: 09/03/23 11:20 Dose: 999 mls/hr Documented By: YAN Folic Acid 1 mg/ Syringe 10 mls @ 5 mls/min IV NOW STA Stop: 09/03/23 11:59 Last Admin: 09/03/23 12:43 Dose: 5 mls/min Documented By: YAN Thiamine HCl 100 mg/ Syringe 10 mls @ 2 mls/min IV NOW STA Stop: 09/03/23 12:02 Last Admin: 09/03/23 12:43 Dose: 2 mls/min Documented By: YAN Thiamine HCl 500 mg/ Sodium (Chloride) 55 mls @ 210 mls/hr IV ONE ONE Stop: 09/03/23 14:30 Last Admin: 09/03/23 14:47 Dose: 210 mls/hr Documented By: DRISS Lorazepam (Lorazepam 1 Mg/1 Ml Syr Ed Inj Use) 2 mg IV ONE STA Stop: 09/03/23 11:59 Last Admin: 09/03/23 12:10 Dose: 2 mg Documented By: YAN Phenobarbital Sodium (Phenobarbital Sodium 65 Mg/Ml Vial) 360 mg IV NOW STA Stop: 09/03/23 13:52 Last Admin: 09/03/23 14:21 Dose: 360 mg Documented By: YAN Discharge Plan Visit Data Chief Complaint: Alcohol Withdrawal ED Provider: Jose Saldaña Discharge Problem: Alcohol withdrawal Forms Stand Alone Forms: [facility], [facility], Suicide Prevention Resources Prescriptions Prescriptions: No Action potassium chloride 20 mEq Tablet Extended Release 20 meq PO DAILY Referrals Referrals: PCP,NO [Primary Care Provider] -
[2023-09-03] MEDS: LORazepam 1 MG/1 ML SYR ED Inj Use IV STA (12:10)
[2023-09-03] MEDS: THIAMINE HCL 100 MG in SYRINGE 9 ML IV STA (12:43)
[2023-09-03] MEDS: FOLIC ACID 1 MG in SYRINGE 9.8 ML IV STA (12:43)
--- NOTE | 2023-09-03 13:09 | History & Physical Report ---
Date of Service September 03, 2023 Assessment & Plan (1) Alcohol withdrawal: Plan: Alcohol withdrawal Patient reports he last withdrew in 2019, had not had seizure and did not require the ICU at that time She presents with alcohol withdrawal. Notes she could not continue to drink this morning due to feeling nauseous and already feels like she is going to withdrawal, feeling sweaty shaky and tremulous She reports that he drinks 6-8 beers per day, 5 to 12 pack and usually has a little left over the next day and that her last drink was around 16 hours prior to admission. Has a ethyl alcohol level of 31 on admission 11 PM 09/19 At the bedside she is diaphoretic, tachycardic, extremely tremulous, and with asterixis. Heart rate and tremors slightly improved after 2 mg of Ativan in the ER Due to severe alcohol withdrawal symptoms with alcohol level at 31 more than 12 hours after her last drink suspect she is at high risk for severe alcohol withdrawal. She presents with a metabolic acidosis and increased anion gap likely due to alcohol on admission. Denies other substance ingestion Patient is interested in remaining sober and would like to be admitted for alcohol treatment recognizes that this is becoming a large problem in her life. She is hesitant and reports she does not think that inpatient or outpatient cessation resources are for her, and is willing to look over these with case management Due to severe alcohol withdrawal symptoms with positive alcohol on admission, moderate to low risk of respiratory suppression she is recommended for phenobarbital treatment and taper as below Phenobarbital Protocol: Withdrawal: High risk of severe withdrawal. Multiple past withdrawal episodes, daily drinking for several months, patient is with symptoms including diapho resis, tachycardia, and tremors with a alcohol level of 31 on admission and is with age of 60 Sedation risk: risk of sedation, no increased risk factors for respiratory compromise at time of admission; specifically no Pneumonia, rib fractures, chest tube, pulmonary contusion, C-collar/brace requirement Actual body weight 85.4, ideal body weight 61kg, ABW 71kg Medium: Risk of Sedation/Resp compromise - Low: Phenobarb 10-12mg/kg. Anticipate initial serum level of ~15-18mcg/mL - Med: Phenobarb 8-10mg/kg. Anticipate initial serum level of ~12-15mcg/mL - High: Phenobarb 6-8mg/kg load. Anticipate initial serum level of ~9- 12mcg/mL High AWD Risk Risk of Sedation/Resp compromise - Low: Phenobarb 12-15mg/kg. Anticipate initial serum level of ~18-23mcg/mL - Med: Phenobarb 10-12mg/kg. Anticipate initial serum level of ~15-18mcg/mL - High: Phenobarb 6-10mg/kg load. Anticipate initial serum level of ~15- 18mcg/mL Based on high based on moderate to high levels fall risk and low to moderate risk of sedation/respiratory compromise: 10 mg/kg load to target approximately 15 mcg/mL initial serum level. Initial dose 10 mg per 61 kg ideal body weight --> 610 mg phenobarbital. Give 360mg IV over 30 minutes immediately, then 250mg IV 3 hours later (again, give dose over 30 minutes). Subsequently will continue 65 mg phenobarbital IV q1h until RASS 0/-1 achieved NO MORE THAN 4 additional doses (this will approximate ~15mg/kg IBW load, below soft stop of 20mg/kg). Day 2: Phenobarb 60mg PO q12h x2 Day 3: Phenobarb 30mg PO q12h x2 doses Notify provider for RASS <-1, or any signs of respiratory suppression If still with significant withdrawal sx despite above, would need xfer to the unit and ?adjunct precedex History of Present Illness Primary Care Provider: NO PCP Kanchan is a 68-year-old female with a past medical history of alcohol abuse, alcohol dependence/withdrawal, right hemicolectomy, diabetes, hypertension who presents to the ER for concern of being in alcohol withdrawal. She developed tremors, nausea similar to her prior episodes of withdrawal. She reports that she is not drinking today as she wishes to stop drinking and has a longstanding history of alcohol abuse. While in the ER sodium level is normal, anion gap of 30, creatinine is normal, alcohol is 31.1. Is a 20-year history of 5-7 beer per daily intake with last admission 2019 Recently drinking at least 8 beers per day for the last several weeks. Tremulous and nauseus x2 Last drink last night, but ETOH 31. No history of seizures 2mg of ativan --> improved. Remains tachycardic. For patient she reports her last withdrawal was in 2019. She reports she had been intermittently sober since that time but for at least the last 8 to 10 months has been drinking near continuously. She reports she buys a 12 pack of beer which lasts her a little more than a day and estimates around 7-8 beers per day. She denies liquor intake. She notes her last drink was yesterday evening, approximately 16 hours ago and that she did not have a higher than normal intake. Presenting ethyl alcohol level 31.1. She denies a history of seizures and hallucinations and has not been in the ICU previously. She is diffusely concetta mulous, this did improve with 2 mg of Ativan Denies any history of lung disease or heart disease Reports she feels extremely tremulous and shaky, Ativan helped with this a little bit but still has difficulty holding objects due to her shaking. She reports that alcohol seems to help with this No headache, no vision change She does feel sweaty and nauseous Medical History: Reviewed Medications: Reviewed Surgical History: Reviewed Family history: Reviewed Allergies: Reviewed Social History: Reviewed Code Status: Full Allergies Allergy/AdvReac Type Severity Reaction Status Date / Time No Known Allergies Allergy Verified 09/03/23 11:43 Home Medications Medication Instructions Recorded Confirmed Type potassium chloride 20 mEq 20 meq PO DAILY 09/03/23 09/03/23 History tablet,extended release Past Med/Surg History Medical History HTN (hypertension) Heart disease Diabetes mellitus Chronic alcohol abuse Colon cancer Surgical History S/P partial colectomy Social History Smoking Status: Current every day smoker Tobacco Type: Cigarettes Cigarettes Per Day: 20; Do You Dip or Chew Tobacco: No; Hx Alcohol Use: Yes Alcohol type: beer Hx Substance Use: No Preferred Language: Cook Islander Communication Ability: Effective Cardiac Sonographer Required: No Beliefs That Will Affect Care: None Current Living Situation: Spouse Current Living Situation Comment: Lives with boyfriend. Other Information That Helps Us Care for You: No Feels Safe at Home: Yes Safety Concerns: Feels Safe At This Time Assistive Devices: Walker Assistive Devices Comment: as needed while at home Physical Exam Physical Exam: General: A&Ox3. Tremulous, diaphoretic. HEENT: Atraumatic, normocephalic. Vision and hearing grossly intact, pupils equal and reactive to light and accommodation Pulm: CTAB A&P. -wheezes, -rales, -rhonchi. Symmetrical chest rise. No increased work of breathing. No respiratory distress. Cardiac: Tachycardic radial pulses intact and symmetrical. Abdominal: Nontender, nondistended, soft. BS present. Extremities: Warm, sweaty. Crystallography Teacher strength and ankle dorsi/plantarflexion are with full strength but patient has shaking in all extremities and asterixis on exam. Results & Data Results & Data Vital Signs (Past 12 Hours) Vital Signs Temp Pulse Pulse Resp BP BP Pulse Ox 09/03/23 12:40 106 H 26 H 142/83 H 100 09/03/23 11:10 124 H 09/03/23 11:02 36.8 C 77 22 158/85 H 98 O2 Del Method 09/03/23 12:40 Room Air 09/03/23 11:10 09/03/23 11:02 Room Air PG Care Time/CCT Total # of Minutes Spent Total Time Spent with Patient: Total time spent is greater than 50% in coordination of care (as documented) at patient's floor/unit and/or counseling patient: Coding Level of Care Code 74311 INT INP/OBS CARE 3/75MIN Diagnoses Alcohol withdrawal F10.939
[2023-09-03] MEDS ORDERED: PHENobarbital PO Alcohol Withdrawal PO STA (13:51)
[2023-09-03] MEDS: PHENobarbital sodium 65 MG/ML VIAL IV STA (14:21)
[2023-09-03] MEDS: DEXTROSE 50% 50 ML SYRINGE IV STA (14:21)
[2023-09-03] MEDS: THIAMINE HCL 500 MG in SODIUM CHLORIDE 0.9% 50 ML IV ONE (14:47)
[2023-09-03 15:38] LABS: Alanine Aminotransferase 16 U/L (7-52); Albumin Level 4.5 gm/dl (3.4-5.0); Alkaline Phosphatase 84 U/L (34-104); Aspartate Aminotransferase 37 U/L (13-39); Bilirubin,Total 0.6 mg/dl (0.2-1.0); Total Protein 8.9 gm/dl (6.0-8.3)
[2023-09-03] MEDS ORDERED: PHENobarbital sodium 65 MG/ML VIAL IV ONE (17:00)
[2023-09-03] MEDS ORDERED: PHENobarbital sodium 65 MG/ML VIAL IV PRN (18:00)
[2023-09-04 06:24] LABS: Basophils # (auto) 0.03 K/uL (0.00-0.20); Basophils % (auto) 0.3 %; Eosinophils # (auto) 0.04 K/uL (0.00-0.50); Eosinophils % (auto) 0.3 %; Hematocrit (blood only) 34.7 % (37.0-47.0); Hemoglobin 11.6 g/dl (12.0-16.0); Immature Granulocytes # (auto) 0.04 K/uL (0.01-0.20); Immature Granulocytes % (auto) 0.3 %; Lymphocytes # (auto) 2.08 K/uL (1.20-3.40); Lymphocytes % (auto) 17.9 %; Mean Corpuscular Hemoglobin 32.4 pg (25.0-34.0); Mean Corpuscular Hgb Conc 33.4 g/dL (32.0-36.0); Mean Corpuscular Volume 96.9 fL (80.0-100.0); Mean Platelet Volume 8.9 fL (9.4-12.4); Monocytes # (auto) 0.82 K/uL (0.11-0.59); Monocytes % (auto) 7.1 %; Neutrophils # (auto) 8.58 K/uL (1.40-6.50); Neutrophils % (auto) 74.1 %; Platelet Count 264 K/uL (130-400); RDW Coefficient of Variation 14.2 % (11.5-14.5); RDW Standard Deviation 50.4 fL (36.4-46.3); Red Blood Count 3.58 M/uL (4.20-5.40); White Blood Count 11.59 K/ul (4.8-10.8)
[2023-09-04 06:59] LABS: Albumin Globulin Ratio 1.1 (0.9-2); Albumin Level 3.7 gm/dl (3.4-5.0); BUN Creatinine Ratio 22.2 (10-20); Calcium 8.9 mg/dl (8.6-10.3); Creatinine Clr Calc Pharmacy 69.6 ml/min; Est GFR (African American) 106.8 ml/min; Est GFR (Non-African American) 92.2 ml/min; Globulin 3.5 gm/dl (2.5-4.0); Potassium 3.7 mmol/L (3.5-5.1); Total Protein 7.2 gm/dl (6.0-8.3)
[2023-09-04] MEDS: PHENobarbitaL 30 MG TAB PO SCH (08:06)
[2023-09-04] MEDS: THIAMINE HCL 100 MG in SYRINGE 9 ML IV SCH (08:07)
[2023-09-04] MEDS: FOLIC ACID 1 MG in SYRINGE 9.8 ML IV SCH (08:07)
--- NOTE | 2023-09-04 19:30 | Hospitalist Progress Note ---
Date of Service September 04, 2023 Assessment & Plan (1) Alcohol withdrawal: Plan: Alcohol withdrawal Patient denies any previous history of seizures last episode of withdrawal 2019 She reports that he drinks 6-8 beers per day, -Has a ethyl alcohol level of 31 on admission 11 PM 09/19 Due to severe alcohol withdrawal symptoms with positive alcohol on admission, moderate to low risk of respiratory suppression she is recommended for phenobarbital treatment and taper as below Based on high based on moderate to high levels fall risk and low to moderate risk of sedation/respiratory compromise: 10 mg/kg load to target approximately 15 mcg/mL initial serum level. Initial dose 10 mg per 61 kg ideal body weight --> 610 mg phenobarbital. Give 360mg IV over 30 minutes immediately, then 250mg IV 3 hours later (again, give dose over 30 minutes). Subsequently will continue 65 mg phenobarbital IV q1h until RASS 0/-1 achieved NO MORE THAN 4 additional doses (this will approximate ~15mg/kg IBW load, below soft stop of 20mg/kg). Day 2: Phenobarb 60mg PO q12h x2 Day 3: Phenobarb 30mg PO q12h x2 doses Plan Patient wished to sign AMA with then changed her mind. She is improved throughout the afternoon Admission and Anticipated Discharge Date Admission Date: September 03, 2023 Subjective Patient was tachycardic but with request to leave AMA. Later in the afternoon she canceled her request and agreed to stay. She has no focal complaints or problems. She is a little bit hyperdynamic with tachycardia hypertension and flushing. She is only with minor tremors at the bedside Physical Exam Physical Exam: Reviewed CBC reviewed chemistry Results & Data Results & Data Vital Signs (Past 12 Hours) Vital Signs Temp Pulse Pulse Resp BP BP Pulse Ox 09/04/23 15:00 79 09/04/23 13:54 98.1 F 76 15 118/61 99 09/04/23 13:30 80 17 114/66 100 09/04/23 13:00 80 15 97/80 L 98 09/04/23 12:00 84 16 106/52 L 91 09/04/23 11:00 73 17 95/61 L 98 09/04/23 10:29 98.1 F 78 16 106/54 L 98 09/04/23 10:00 79 17 103/55 L 95 09/04/23 09:30 84 24 97/59 L 94 09/04/23 09:00 78 14 100/58 L 96 09/04/23 08:30 76 16 104/50 L 96 09/04/23 08:00 82 09/04/23 08:00 85 16 98/56 L 96 O2 Del Method 09/04/23 15:00 09/04/23 13:54 Room Air 09/04/23 13:30 Room Air 09/04/23 13:00 Room Air 09/04/23 12:00 Room Air 09/04/23 11:00 Room Air 09/04/23 10:29 Room Air 09/04/23 10:00 Room Air 09/04/23 09:30 Room Air 09/04/23 09:00 Room Air 09/04/23 08:30 Room Air 09/04/23 08:00 09/04/23 08:00 Room Air PG Care Time/CCT Total # of Minutes Spent Total Time Spent with Patient: Total time spent is greater than 50% in coordination of care (as documented) at patient's floor/unit and/or counseling patient: Coding Level of Care Code 70712 SUB INP/OBS CARE 2/35MIN Diagnoses Alcohol withdrawal F10.939
[2023-09-05 06:18] LABS: Basophils # (auto) 0.02 K/uL (0.00-0.20); Basophils % (auto) 0.2 %; Eosinophils % (auto) 1.1 %; Hematocrit (blood only) 38.5 % (37.0-47.0); Hemoglobin 13.2 g/dl (12.0-16.0); Immature Granulocytes # (auto) 0.04 K/uL (0.01-0.20); Immature Granulocytes % (auto) 0.4 %; Lymphocytes # (auto) 1.93 K/uL (1.20-3.40); Lymphocytes % (auto) 21.3 %; Mean Corpuscular Hemoglobin 33.2 pg (25.0-34.0); Mean Corpuscular Hgb Conc 34.3 g/dL (32.0-36.0); Monocytes # (auto) 0.75 K/uL (0.11-0.59); Monocytes % (auto) 8.3 %; Neutrophils # (auto) 6.24 K/uL (1.40-6.50); Neutrophils % (auto) 68.7 %; Platelet Count 244 K/uL (130-400); RDW Coefficient of Variation 13.7 % (11.5-14.5); RDW Standard Deviation 49.1 fL (36.4-46.3); Red Blood Count 3.97 M/uL (4.20-5.40); White Blood Count 9.08 K/ul (4.8-10.8)
[2023-09-05 06:27] LABS: Albumin Globulin Ratio 1.1 (0.9-2); Albumin Level 3.7 gm/dl (3.4-5.0); BUN Creatinine Ratio 21.2 (10-20); Bilirubin,Total 0.8 mg/dl (0.2-1.0); Creatinine Clr Calc Pharmacy 84.3 ml/min; Est GFR (African American) 113.8 ml/min; Est GFR (Non-African American) 98.2 ml/min; Globulin 3.4 gm/dl (2.5-4.0); Potassium 3.2 mmol/L (3.5-5.1); Total Protein 7.1 gm/dl (6.0-8.3)
--- NOTE | 2023-09-05 08:27 | Discharge Summary ---
Date of Service September 05, 2023 Admission HPI Per Admitting Provider Kanchan is a 68-year-old female with a past medical history of alcohol abuse, alcohol dependence/withdrawal, right hemicolectomy, diabetes, hypertension who presents to the ER for concern of being in alcohol withdrawal. She developed tremors, nausea similar to her prior episodes of withdrawal. She reports that she is not drinking today as she wishes to stop drinking and has a longstanding history of alcohol abuse. While in the ER sodium level is normal, anion gap of 30, creatinine is normal, alcohol is 31.1. Is a 20-year history of 5-7 beer per daily intake with last admission 2018 Recently drinking at least 8 beers per day for the last several weeks. Tremulous and nauseus x2 Last drink last night, but ETOH 31. No history of seizures 2mg of ativan --> improved. Remains tachycardic. For patient she reports her last withdrawal was in 2019. She reports she had been intermittently sober since that time but for at least the last 8 to 10 months has been drinking near continuously. She reports she buys a 12 pack of beer which lasts her a little more than a day and estimates around 7-8 beers per day. She denies liquor intake. She notes her last drink was yesterday evening, approximately 16 hours ago and that she did not have a higher than normal intake. Presenting ethyl alcohol level 31.1. She denies a history of seizures and hallucinations and has not been in the ICU previously. She is diffusely tremulous, this did improve with 2 mg of Ativan Denies any history of lung disease or heart disease Reports she feels extremely tremulous and shaky, Ativan helped with this a lit tle bit but still has difficulty holding objects due to her shaking. She reports that alcohol seems to help with this No headache, no vision change She does feel sweaty and nauseous Medical History: Reviewed Medications: Reviewed Surgical History: Reviewed Family history: Reviewed Allergies: Reviewed Social History: Reviewed Code Status: Full Principal Diagnosis ETOH withdrawal. Discharge Exam Patient with a heart rate of 94. With tremors. [id number] Patient is calm and not hallucinating. Discharge Data Allergies Allergy/AdvReac Type Severity Reaction Status Date / Time No Known Allergies Allergy Verified 09/03/23 11:43 Consultations 09/03/23 13:05 ED Decision to Admit Stat Hospital Course (1) Alcohol withdrawal: Alcohol withdrawal Patient denies any previous history of seizures last episode of withdrawal 2018 She reports that he drinks 6-8 beers per day, -Has a ethyl alcohol level of 31 on admission 11 PM 09/19 Due to severe alcohol withdrawal symptoms with positive alcohol on admission, moderate to low risk of respiratory suppression she is recommended for phenobarbital treatment and taper as below Based on high based on moderate to high levels fall risk and low to moderate risk of sedation/respiratory compromise: 10 mg/kg load to target approximately 15 mcg/mL initial serum level. Initial dose 10 mg per 61 kg ideal body weight --> 610 mg phenobarbital. Give 360mg IV over 30 minutes immediately, then 250mg IV 3 hours later (again, give dose over 30 minutes). Subsequently will continue 65 mg phenobarbital IV q1h until RASS 0/-1 achieved NO MORE THAN 4 additional doses (this will approximate ~15mg/kg IBW load, below soft stop of 20mg/kg). Day 2: Phenobarb 60mg PO q12h x2 Day 3: Phenobarb 30mg PO q12h x2 doses Patient on 09/04 decided to sign out against medical advice. Patient was sound of mind and able to make her decisions. Patient was able to repeat the risks of leaving against medical advice: fall, seizure, . *Severe protein-calorie malnutrition Recommended lifestyle modifications. Total Time Total Time Spent Total Time Spent (In Minutes): 32 (included chart review, discussion with patient) Discharge Plan Discharge Items Patient Disposition: Against Medical Advice Reason For Visit: SEVERE ETOH WITHDRAWAL Activity: As commented below Activity Comment: No driving for next 7 days. Non-emergency contact: Primary Care Provider Follow-up/Referrals: PCP,NO [Primary Care Provider] - Pending Studies at Discharge: Yes Stand-Alone Forms: [employer], Smoking Cessation Medications and DC Order Prescriptions: Continued potassium chloride 20 mEq Tablet Extended Release 20 meq PO DAILY Discharge Orders: Left Against Medical Advice (Routine); Ordered 09/05/23 Ordered By: Vladimir Vann Admission Data Admit Date/Time: 09/03/23 14:11 Attending Provider: Vladimir Vann Admit Provider: Abimael Ochoa Primary Care Provider: PCP,NO Other Providers: Abimael Ochoa Coding Level of Care Code 19021 INP/OBS DISCH >30 MIN Diagnoses Alcohol withdrawal F10.939
[2023-09-05] MEDS: THIAMINE HCL 100 MG TAB PO SCH (09:02)
[2023-09-05] MEDS ORDERED: PHENobarbitaL 30 MG TAB PO SCH (20:00)
== END 2023-09-05 08:45 | disposition left against medical advice (07) | DRG 894 ==
LOC: ED 10:57 → 2E 14:11 → SUATTDRO 14:11 → 2E 15:30